=== PATIENT | male | born 1945 | race Caucasian/White ===

== ENCOUNTER → 2018-04-27 20:37 | Outpatient (REF) | payer MEDICARE, OTHER, SELFPAY ==
[2018-04-27 21:15] LABS: Add Manual Diff / Slide Review NO; Basophils Absolute Auto 0 /uL (0-100); Basophils Percent Auto 0.5 % (0-2); Eosinophils Absolute Auto 0 /uL (0-450); Eosinophils Percent Auto 0.5 % (2-4); Hematocrit 40.5 % (41-53); Hemoglobin 13.7 g/dL (13.5-17.5); Lymphocytes Absolute Auto 1600 /uL (1100-4500); Lymphocytes Percent Auto 35.8 % (25-40); Mean Corpuscular HGB Conc 33.9 % (30-36); Mean Corpuscular Hemoglobin 31.1 PG (26-34); Mean Corpuscular Volume 91.9 fL (80-100); Monocytes Absolute Auto 600 /uL (0-900); Neutrophils Absolute Auto 2200 /uL (1500-7000); Neutrophils Percent Auto 50.2 % (50-75); Platelet Count 128 X10^3/uL (150-400); Red Blood Cell Count 4.41 X10^6/uL (4.5-5.9); White Blood Cell Count 4.4 X10^3/uL (4.5-11.0)
[2018-04-27 21:37] LABS: Alanine Aminotransferase 36 IU/L (21-72); Albumin 4.1 g/dL (3.5-5.0); Albumin Globulin Ratio 2.1 (1.0-2.8); Alkaline Phosphatase 47 U/L (38-126); Aspartate Aminotransferase 28 IU/L (17-59); Bilirubin Total 0.9 mg/dL (0.2-1.3); Blood Urea Nitrogen 16 mg/dL (9-20); Calcium 9.4 mg/dL (8.4-10.2); Carbon Dioxide 31 mmol/L (22-32); Chloride 99 mmol/L (98-107); Estimated Glomerular Filt Rate > 60.0 mL/min (>60); Glucose 109 mg/dL (80-110); HEMOLYSIS < 15 (0-50); Potassium 4.1 mmol/L (3.4-5.1); Sodium 136 mmol/L (137-145); Total Protein 6.1 g/dL (6.3-8.2)
== END ==
LOC: LAB 20:37
PROVIDERS: Family Provider Family Medicine Geriatric Medicine; PCP Family Medicine Geriatric Medicine; Visit Provider Family Medicine Geriatric Medicine
DX: I10 Essential (primary) hypertension (principal); Z01.812 Encounter for preprocedural laboratory examination
CPT/HCPCS: 36415; 80053; 85025

== ENCOUNTER 2018-05-17 09:48 | Day surgery (SDC) | payer MEDICARE, OTHER, SELFPAY ==
[2018-05-09 07:54] VITALS: BMI 24.7
[2018-05-17] VITALS (8 sets, daily range): BP systolic 90–161; BP diastolic 38–78; PULSE 60–68; RESP 10–16; TEMP 36.1–36.7; O2SAT 93–100; BMI 23.3
[2018-05-17] MEDS: LACTATED RINGERS 1,000 ML 42 ML IV (11:28)
[2018-05-17] MEDS: CEFAZOLIN 2 GM/100 ML FROZ.PIGGY IV (14:16)
--- NOTE | 2018-05-17 14:39 | SUR.OPER ---
Supine on padded OR bed, head on pillow, right arm secured on padded arm boards at <90 degrees abduction, left arm drapped free on black arm tablelegs uncrossed, safety belt at thigh, tape over blanket over lower legs.
[2018-05-17] MEDS: BUPIVACAINE 0.5% W/ EPI (PF) VIAL 30 ML INJ (14:47)
--- NOTE | 2018-05-17 15:54 | PM.OP.1 ---
Operative Date/Time/Diagnoses Date of procedure: 05/17/18 Time of procedure: 14:30 Post-op diagnosis: same Procedure & Clinicians Procedure: Fasciotomy of the left small finger and palm. Fasciectomy of the cord formation in the palm of the hand involving the ring finger. Fasciectomy of the cord formation in the palm of the hand involving the middle finger. Same procedure as scheduled: Yes Indications: Dupuytren's contracture with a greater than 90 degree contracture to the PIP joint of the small finger as well as contractures involving the MCP joints of the ring and middle finger. Surgeon: Alvin Bazan Click Yes if Unassisted: Yes Anesthesia Type: General Operative Notes Findings: Significant contracture involving the PIP joint of the small finger. Much milder contracture involving the MCP joints of the ring and middle finger. Closure Type: primary Specimen(s): none sent Estimated Blood Loss (mL): 1 Blood products transfused: none Tourniquet time (min): 59 Procedure in detail: On date of service patient was met in the holding area where his operative site was signed and witnessed by the OR staff. surgeries once again discussed with the patient in remaining questions or concerns they had were answered fully. Patient was taken back to the operating theater placed on the operating table in a supine position. Great care was taken to ensure that all bony prominences were appropriately padded. well-padded tourniquet was placed up along the upper extremity. Time-out was performed verifying patient's name, procedure, and operative site. the left arm was prepped and draped in normal sterile fashion. Esmarch was used to exsanguinate the limb and the tourniquet was turned up to 250 mm of mercury. We 1st turned our attention to the cord formation in the palm of the middle finger causing an MCP joint contracture. Kathi incision was made along the cord. Fifteen blade was used to sharply dissect through skin and fascial tissue. This tissue was then sharply dissected off the Dupuytren's cord using the 15 blade. Neurovascular bundles were identified and once they were protected the cord was removed allowing us to fully extend the MCP joint. the wound was irrigated and then closed with nylon. Next we turned our attention to the cord formation involving the ring finger. Similar incision was made. Fifteen blade was used to incise the skin and fascial tissue. once again the neurovascular bundles were identified and protected and once the cord was fully visualized it was removed allowing us to fully extend the MCP joint of the ring finger. The wound was irrigated and then closed with nylon We finally we addressed the small finger. This was a much larger incision starting at the distal finger crease going past the proximal palmar crease. Kathi type incision was used again. Fifteen blade was used to incise through skin and fascial tissue. Patient had a center cord formation as well as a lateral cord formation involving the finger and the palm. The ulnar digital nerve was significantly involved. Radial digital nerve was also involved to a lesser degree. Great care was taken to dissect both digital nerves free from the diseased tissue. once this was done, the center cord formation was removed as well as the lateral cord formation. Removing both of these allowed us to get almost full extension of the PIP joint. We went from a greater than 90 degree contracture to about a 10 degree contracture. Wound was copiously irrigated and closed with nylon. Patient's hand was clean, dry, and dressed. He was placed into a splint and taken to the PACU in stable condition. Complications: none Condition: stable Disposition: PACU Plan for aftercare: Splint will be on for a few days. Patient will be then put into a nighttime brace which he will wear for 12 weeks. No limitations to range of motion once the splint is removed.
[2018-05-17] MEDS: HYDROCODONE/ACET 5/325 TABLET 1 TAB PO (16:20)
--- NOTE | 2018-05-17 17:14 | SUR.PHASEII ---
Assumed care from Adilia, friend brought in, d/c instructions discussed with both, both voiced an understanding. Dressing to l hand c/d/i. Iced and elevated. Assisted to dress by WOO [place] pt left when ready and left in stable condition.
== END 2018-05-17 17:00 | disposition home or self-care (01) ==
PROVIDERS: PCP Family Medicine Geriatric Medicine; Visit Provider Orthopaedic Surgery
PROC: (CPT 26045; principal; 2018-05-17 13:00)
DX: M72.0 Palmar fascial fibromatosis [Dupuytren] (principal); I10 Essential (primary) hypertension; J45.909 Unspecified asthma, uncomplicated; I48.91 Unspecified atrial fibrillation; Z87.891 Personal history of nicotine dependence
CPT/HCPCS: 26123; 26125; 26045; J0690; J2250; J2405; J2704; J3010

== ENCOUNTER → 2018-09-04 07:28 | Outpatient (CLI) | payer MEDICARE, OTHER, SELFPAY ==
--- NOTE | 2018-09-04 | PATH_ITS ---
Note [facility] Accession Number: [id number] TESTS RESULT FLAG UNITS REF RANGE LAB Clinician Provided Cytology Information No. of containers..01 ThinPrep Vial No. of containers..10 Previously Prepared Cytology Slide R GROIN LYMPH NODE DIAGNOSIS: 02 RIGHT GROIN LYMPH NODE NEGATIVE FOR MALIGNANT CELLS. 1B BENIGN APPEARING LYMPHOCYTES PRESENT. Pathologist ICD10: 02 R59.0 01 THE SINGLE ENLARGED, ABNORMAL APPEARING RIGHT GROIN LYMPH NODE IS AGAIN SEEN, MEASURING 1.4 X 0.9 X 1.8 CM. THE LYMPH NODE HAS ABNORMAL DIFFUSE HYPOECHOIC WITH LOSS OF THE NORMAL FATTY HILUM. THE RIGHT GROIN LYMPH NODES ARE NORMAL IN APPEARANCE WITH ABUNDANT FATTY HILUM. 02 Grant Polo MD, Pathologist NPI- [id number] Ayaz Barksdale, Vice President ([facility]) 01 30 CC, PINK, CLEAR RECEIVED: 5 ALCOHOL FIXED AND 5 QUICK STAINED SLIDES. /VDU FLAG LEGEND: L-Low Normal,H-High Normal,LL-Alert Low,HH-Alert High <-Panic Low,>-Panic High,A-Abnormal,AA-Critical Abnormal Performed at: 01 =Z [facility] [address], [place] [address] Willian Thomas MD, 02 LCLWA [facility] [place] [address] [place] [address] Nadine Marie MD, Performed at: 01 [facility] [address] [address] [address] [address], [place], [place] [id number] MD Willian Thomas MD Phone: [phone]
--- NOTE | 2018-09-04 | DI.US.S_ITS ---
PROCEDURE: US FINE NEEDLE ASPIRATION INDICATIONS: LOCALIZED ENLARGED RT LYMPH NODE TECHNIQUE: The indications, alternatives, benefits, risks, and complications of the procedure were explained to the patient. Written informed consent was obtained and placed in the chart. Real-time sonography was utilized to choose the site for percutaneous lymph node sampling. The skin was prepped and draped in the usual sterile fashion. 1% lidocaine was infiltrated down to the site of interest. A coaxial needle was then advanced into the site of interest under direct sonographic visualization. A biopsy apparatus was then utilized, and core biopsies were obtained. The needle was then withdrawn; a bandage was applied to the biopsy site. COMPARISON: None. FINDINGS: Biopsy site(s): Right inguinal lymph node Needle: Jobinasecond biopsy needle set. Number of passes: 8 Medications: 1% lidocaine for local anaesthesia. Complications: None. IMPRESSION: Successful ultrasound-guided right inguinal lymph node biopsy, with pathology results pending. Dictated by: Maru Abdullahi M.D. on 09/04/2018 at 13:37 Approved by: Maru Abdullahi M.D. on 09/04/2018 at 13:38
== END ==
PROVIDERS: PCP Family Medicine Geriatric Medicine; Visit Provider Family Medicine Geriatric Medicine
DX: R59.0 Localized enlarged lymph nodes (principal)
CPT/HCPCS: 10005

== ENCOUNTER → 2022-06-10 09:51 | Outpatient (CLI) | payer MEDICARE, OTHER, SELFPAY ==
--- NOTE | 2022-06-10 | DI.CT.S_ITS ---
PROCEDURE: CT LUMBAR SPINE WO CON INDICATIONS: Spinal stenosis, lumbar region with neurogenic claudication TECHNIQUE: Noncontrast 0.8 mm thick sections acquired from the T12 level to the sacrum. Sagittal and coronal reformats were constructed. For radiation dose reduction, the following was used: automated exposure control. COMPARISON: Outside Facility, RG, XR L-SPINE 4-6V, 04/22/2022, 10:52. Outside Facility, RG, MRI L-SPINE W/O CONTRAST, 01/21/2021, 10:38. FINDINGS: Image quality: Excellent. Bones: No acute vertebral body compression fractures. No suspicious lytic or blastic bony lesions. No pars defects. There is at least moderate dextroconvex scoliosis. T12-L1: Moderate loss of disc height is seen. Bridging endplate osteophytes are seen anteriorly as well as on the right and on the left. No significant neural foraminal or central canal narrowing can be seen. T12-L1: At least moderate loss of disc height is seen. Vacuum disc phenomenon is seen at this level. Bridging endplate osteophytes are seen, which are worst on the right and anteriorly. Moderate generalized disc bulge is seen. There is moderate right-sided and mild left-sided facet hypertrophy. There is moderate left-sided and moderate to severe right-sided neural foraminal narrowing. Mild to moderate central canal narrowing is seen. L1-L2: Severe loss of disc height is seen on the right side. Prominent bridging endplate osteophytes are seen on the right. At least moderate disc bulge is seen. There is severe right-sided and moderate left-sided neural foraminal narrowing. Moderate central canal narrowing is seen. L2-L3: At least moderate loss of disc height is seen on the right side. Bridging endplate osteophytes are seen, which are worst on right side. Post erected endplate osteophytes are seen, including within the right neural foramen, with associated moderate right-sided neural foraminal narrowing. At least moderate left-sided neural narrowing can be seen. There is prominent right-sided and mild left-sided facet hypertrophy. Moderate central canal narrowing is seen. L3-L4: There is at least moderate right-sided loss of disc height. Endplate irregularity and sclerosis can be seen. Vacuum disc phenomenon is seen at this level. Partially bridging endplate osteophytes are seen on the right side. Posteriorly projected endplate osteophytes are seen. There is moderate to severe bilateral neural foraminal narrowing seen. Severe central canal narrowing is seen at this level. L4-L5: Moderate to severe loss of disc height is seen. Vacuum disc phenomenon is seen at this level. Prominent bridging endplate osteophytes are seen on the left, as on series 8, image 25. At least moderate disc bulge is seen. There is moderate right-sided and moderate to prominent left-sided facet hypertrophy. There is moderate to severe left-sided and at least moderate right-sided neural foraminal narrowing. There is severe central canal narrowing. L5-S1: At least moderate loss of disc height is seen. Vacuum disc phenomenon is seen at this level. Partially bridging endplate osteophytes are seen on the left. Moderate disc bulge is seen, which is eccentric to the left. Posteriorly projected endplate osteophytes are seen. Moderate to severe bilateral neural foraminal narrowing is seen at this level. Mild central canal narrowing is seen. Note is made of fusion of the sacroiliac joints, left worse than right. Soft tissues: No retroperitoneal masses or hematomas. Visualized aorta is normal in caliber. Advanced aortic calcification can be seen. Pacer leads are partially seen. IMPRESSION: Multiple levels of prominent lumbar spine degenerative change can be seen. There is severe central canal narrowing seen at L3-L4 and L4-L5. Multiple levels of significant neural foraminal narrowing can be seen. There is at least moderate dextroconvex lumbar scoliosis. Additional findings: Pacer leads Advanced aortic calcification Dictated by: Shantanu Grover M.D. on 06/10/2022 at 11:04 Approved by: Shantanu Grover M.D. on 06/10/2022 at 11:12
== END ==
PROVIDERS: PCP Family Medicine; Referring Provider Orthopaedic Surgery Orthopaedic Surgery of the Spine; Visit Provider Orthopaedic Surgery Orthopaedic Surgery of the Spine
DX: M48.062 Spinal stenosis, lumbar region with neurogenic claudication (principal); M48.07 Spinal stenosis, lumbosacral region; M47.816 Spondylosis without myelopathy or radiculopathy, lumbar region; M41.9 Scoliosis, unspecified; I70.0 Atherosclerosis of aorta
CPT/HCPCS: 72131

== ENCOUNTER 2022-07-27 07:06 | Inpatient (IN) | payer MEDICARE, OTHER, SELFPAY ==
[2022-07-20 09:21] VITALS: BMI 24.0
[2022-07-27] VITALS (13 sets, daily range): BP systolic 87–159; BP diastolic 38–77; PULSE 63–92; RESP 11–18; TEMP 35.5–36.4; O2SAT 95–100; BMI 24.4
--- NOTE | 2022-07-27 | DI.RAD.S_ITS ---
PROCEDURE: XR LUMBAR SPINE 2-3V INDICATIONS: L3-4 L4-5 TLIF TECHNIQUE: Multiple intraoperative fluoroscopic images of the lumbar spine. COMPARISON: [facility], CR, L-SPINE 2-3 VIEWS, 10/30/2009, 12:10. FINDINGS: Multiple intraoperative fluoroscopic images of the lumbar spine demonstrate interval posterior spinal fusion and discectomy of L3 through L5. No gross hardware complication seen.. IMPRESSION: Intraoperative fluoroscopic support for posterior fusion of the lumbar spine. Please see separate procedure note for further details. Dictated by: Gregg Hanna M.D. on 07/27/2022 at 17:31 Approved by: Gregg Hanna M.D. on 07/27/2022 at 17:32
[2022-07-27] MEDS: LACTATED RINGERS 1,000 ML 42 ML IV ×2 (07:47→10:47)
--- NOTE | 2022-07-27 08:20 | PM.PREOP ---
Pre-operative Note COVID-19 Criteria for continued procedure: Expected advancement of disease process, Possibility delay results in more complex future surgery or treatment, Increased loss of function, Continuing or worsening of significant or severe pain, Deterioration of the patient's condition or overall health and Delay expected to result in less-positive ultimate med/surg outcome Interval Note History & Physical reviewed/Exam performed by Physician: Yes Changes to H&P: No
[2022-07-27] MEDS: CEFAZOLIN 2 GM/100 ML PREMIX 100 ML IV ×3 (09:05→22:51)
--- NOTE | 2022-07-27 09:29 | SUR.OPER ---
Prone on spine table, head in foam head support, padded chest and pelvic supports, gel pad at knees, lower legs supported by pillows; nipples, genitalia and toes free of pressure, arms secured on foam padded arm boards at <90 degrees abduction. Tape over blanket at thigh secured to table.
[2022-07-27] MEDS: BUPIVACAINE LIPOSOME 266 MG/20 ML VIAL INJ (10:07)
[2022-07-27] MEDS: BUPIVACAINE 0.25% (PF) 60 ML, EPINEPHrine 0.15 MG INJ (10:08)
[2022-07-27] MEDS: CEFAZOLIN VIAL 2 GM in SODIUM CHLORIDE 0.9% 100 ML IV (13:00)
--- NOTE | 2022-07-27 13:26 | PM.OP.1 ---
Operative Date/Time/Diagnoses Date of procedure: 07/27/22 Time of procedure: 08:40 Pre-op diagnosis: 1. Lumbar scoliosis 2. Lumbar spinal stenosis with neurogenic claudication Post-op diagnosis: same Procedure & Clinicians Procedure: 1. L3-4, L4-5 Postero-lateral and posterior interbody fusion 2. L3-4, L4-5 interbody cage placement. 3. L3-4, L4-5 decompressive laminectomy with bilateral facetecomies 4. L3-4, L4-5 Posterior segmental instrumentation 5. [place] of bone marrow from iliac crest 6. Utilization of microsurgical technique and operating microscope 7. Utilization of robotic assisted navigation Same procedure as scheduled: Yes Indications: Patient has been having chronic back pain and worsening lumbar radiculopathy and symptoms of neurogenic claudication. Patient failed multiple conservative management with worsening pain weakness and numbness in his lower extremity. Patient has been having difficulty performing activity of daily living. After discussing risks benefits of treatment options, patient elected proceed with surgery. Surgeon: Caron Adkins Senior Clinical Sas Programmer: Yuliet Hurley Click Yes if Unassisted: No Anesthesia Type: General Operative Notes Closure Type: primary Specimen(s): none sent Prosthetic devices, grafts, tissues, transplants, or devices: Globus CREO MIS screws, Rise cages Applied: catheter Estimated Blood Loss (mL): 250 Blood products transfused: none Procedure in detail: Patient was seen in the preoperative area. Risks and benefits of the surgery was discussed with the patient. Informed consent was obtained from the patient and placed in the chart. Surgical site was marked. Patient was taken to the operative room. General anesthesia was administered. Prophylactic antibiotic was given to the patient less than 30 min before the incision was made. Patient was placed into a prone position on the Roosevelt table. Patient's back was then prepped and draped in the sterile fashion. Time-out was performed at this time. After patient was prepped and draped, patient's PSIS was palpated and marked bilaterally. Small 1 cm incision was made over the PSIS for placement of the reference probes. Two trocar was placed into the PSIS 1 on each side. The reference probe was attached to the trocar of the reference apparatus. At this time the C-arm imaging was used to confirm AP and lateral of L3, L4-L5 vertebrae and merged the C-arm imaging using the Acopio robotic navigation system with the CT of the lumbar spine. After successful merging was completed and confirmed, skin marker was used to moose out the skin incision using the Acopio robotic arm. Bilateral incision was made at this time. Pre templated trajectory was used and guided using the Acopio robotic navigation system for bilateral L3 L4, L5 pedicle screw placement. This was done by using the robotic arm to guide the high-speed bur to make a cortical entry point. Next a drill was placed also using the robotic arm and guided using the navigation system drilling partially through bilateral L3, L4, L5 pedicles. Next L3, L4, L5 pedicle screws it was pre templated and measured was placed onto the power bulk delivery driver and inserted into the pedicles bilaterally. After all 6 screws were placed C-arm imaging was taken of both AP and lateral to confirm the placement. Excellent placement of the screws were confirmed and a matched precisely with the pre planned screw placement using the navigation system. MARs retractor was inserted using Data Stream CBOTivation guidence. Globus MARS retractors was placed inside the incision and docked onto the L3, L4 lamina. Using microsurgical technique and operating microscope, a L3, L4 laminectomy and L3-4, L4-5 facetectomy was performed using a Kerrison rongeur. The laminectomy and facetectomy was performed in order to decompress patient's cauda equina as well as the nerve roots exiting at the L3-4, L4-5 level. Patient was found have severe central stenosis, severe lateral recess and neural foramen stenosis which was fully decompressed after the laminectomy and facetectomies. More than 75% of the facets were removed during the process of decompression rendering L3-4, L4-5 level grossly unstable and required a fusion procedure at the same time. The disc space at L3-4, L4-5 was identified, and a total diskectomy was performed at L3-4, L4-5 level. The endplates were decorticated using a rasp and shaver. The total diskectomy and decortication was performed at L3-4, L4-5 level in order to to accomplish a L3-4, L4-5 fusion. The local bone from the laminectomy and facetectomy was saved for local bone grafting. After the total diskectomy and decortication was completed, Trifecta bone graft material was combined with local bone that was harvested earlier. At this time, a separate skin is incision was made over the iliac crest. A Jamshidi needle was inserted into the iliac crest through a separate skin incision. 5 cc of bone marrow aspiration was obtained through the separate skin incision using a Jamshidi needle from the iliac crest. The bone marrow aspiration was combined with local bone and the Trifecta bone grafting material. The bone grafting material was placed into the L3-4, L4-5 interbody space along with expandable cages. One cage each was inserted into the L3-4 L4-5 interbody space along with bone graft material. The cage was expanded to its maximum height using the torque limiting screwdriver. The disc preparation as well as the cage insertion were also performed under navigation guidance. After the cage was placed, AP and lateral C-arm imaging was taken to confirm placement of the cage and excellent position was confirmed. Globus MARS retractor was inserted and docked onto the L3-4, L4-5 posterolateral gutter on the right side. Using the power drill, posterior-lateral decortication was performed at L3-4, L4-5 level until bleeding cortical bone was identified. The remaining bone grafting material was placed into the L3-4, L4-5 posterior lateral gutter he order to accomplish posterolateral fusion at the L3-4, L4-5 level. At this time the tulips were attached to the L3, L4-L5 pedicle screw shanks. After measuring the length of the rods, they were inserted into the tulips of the pedicle screws and locked in place using locking caps and torque limiting screwdriver bilaterally. Total 6 caps and 2 titanium rods was used in order to complete the posterior instrumentation construct. After all the hardware was placed, and confirmed with AP and lateral C-arm imaging, the wound was then irrigated with sterile normal saline and packed with Ray-Christophe gauze for 3 min to accomplish hemostasis. After the gauze was removed the deep fascia was closed with #1 Vicryl suture. The subcutaneous layer was closed with 2-0 Vicryl. The skin was closed with skin jayce. Patient tolerated the procedure well. There were no complications. Neuro monitoring system was used to monitor patient's neurologic status throughout entire procedure. There was no disturbance of the neural monitoring signals throughout the case. The Operation could not have been safely performed without compromising the technical result or length of the procedure, without the assistance of a skilled surgical instrument repair specialist. The surgical instrument repair specialist was medically necessary for proper positioning, retraction and manipulation of instruments, proper exposure, surgical preparation, and manipulation of tissue. Complications: none Post-operative Condition: stable Disposition: PACU Plan for aftercare: Admit to inpatient hospital
[2022-07-27] MEDS: hydrOXYzine pamoate 25 MG CAPSULE 50 MG PO (13:42)
[2022-07-27] MEDS: OXYCODONE IR 5 MG TABLET PO (13:42)
[2022-07-27] MEDS: HYDROMORPHONE 0.5 MG INJ IV ×2 (14:50→19:06)
[2022-07-27] MEDS: LACTATED RINGERS 1,000 ML 125 ML IV ×2 (14:54→21:46)
[2022-07-27] MEDS: CARBIDOPA-LEVODOPA 25/100 TABLET 1 EACH PO ×2 (14:57→21:54)
--- NOTE | 2022-07-27 16:12 | PT-IP ANOTE ---
Patient still drowsy and in a lot of pain, not appropriate to mobilize yet with PT. Obtained history and home setup from patient and SO Christophe. Will plan to eval tomorrow AM. Christophe would like to be present during PM session and left phone number on board in room to coordinate time.
[2022-07-27] MEDS: OXYCODONE IR 10 MG TABLET PO ×2 (16:21→21:54)
--- NOTE | 2022-07-27 16:48 | PC.NURSE ---
Patient arrived from PACU at 1410. He is alert, OX3. He reports pain 100,000 out of 10. Incision to back, c/d/i.SBP initially low 80's-90's, improved to 100's. DBP 40's-50's. Patient continues to c/o severe pain but reports it is improving to 850,000 out of 10 He is placed on 2 LNC for support as 02 sats in upper 80's. He is educated and encouraged to use IS, and is able to reach 2,5000. Ice packs placed to back.Gatica catheter in place draining clear, yellow, adequate urine. He is able to turn from side to side in the bed with assistance. Educated on spinal precautions. at bedside very supportive.
[2022-07-27] MEDS: hydrOXYzine pamoate 25 MG CAPSULE PO (21:54)
[2022-07-27] MEDS: ATORVASTATIN 20 MG TABLET 40 MG PO (21:54)
[2022-07-27] MEDS: SENNOSIDES 8.6 MG TABLET 17.2 MG PO (21:54)
[2022-07-27] MEDS: DOCUSATE 100 MG CAPSULE PO (21:54)
[2022-07-27] MEDS: ACETAMINOPHEN 325 MG TABLET 650 MG PO (21:55)
[2022-07-28] VITALS (8 sets, daily range): BP systolic 100–120; BP diastolic 39–66; PULSE 66–89; RESP 15–18; TEMP 35.9–38.2; O2SAT 92–99
[2022-07-28] MEDS: HYDROMORPHONE 0.5 MG INJ IV (00:36)
[2022-07-28] MEDS: hydrOXYzine pamoate 25 MG CAPSULE PO (03:00)
[2022-07-28] MEDS: OXYCODONE IR 10 MG TABLET PO ×4 (03:02→20:01)
[2022-07-28] MEDS: LEVOTHYROXINE 88 MCG TABLET PO (06:13)
[2022-07-28] MEDS: ACETAMINOPHEN 325 MG TABLET 650 MG PO ×2 (06:13→20:03)
[2022-07-28] MEDS: LACTATED RINGERS 1,000 ML 125 ML IV ×2 (06:15→22:59)
[2022-07-28 06:17] LABS: Hematocrit 27.6 % (41-53); Hemoglobin 9.6 g/dL (13.5-17.5)
--- NOTE | 2022-07-28 07:26 | PM.PNPO.1 ---
Subjective Subjective Date Patient Seen: 07/28/22 Time Patient Seen: 07:27 Interval history: Pain moderate to severe. Denies fever or chills. No nausea or vomiting Exam Vital Signs (past 8 hours): - 07/28/22 01:50 07/28/22 05:43 Temperature 97.3 F L 98.1 F Pulse Rate 82 84 Respiratory Rate 18 16 Blood Pressure 106/48 L 111/49 L Pulse Oximetry 92 93 Oxygen Flow Rate 0 Oxygen Delivery Method Room Air Oxygen Flow Rate 0 Narrative Exam Narrative: 76-year-old male resting comfortably in bed in no apparent distress. Motor functions intact bilateral lower extremities. Sensation grossly intact to light touch bilateral lower extremities. Const General: cooperative and comfortable Nutritional Appearance: average body habitus Orientation: alert Resp Effort & Inspection: normal respiratory effort and able to speak in complete sentences Objective Labs 07/28/22 05:39 Labs: Laboratory Results - last 24 hr 07/28/22 05:39 Hgb 9.6 L Hct 27.6 L PFSH Medical History Acid reflux Afib Ascending aorta dilation Asthma Bradycardia (~2020) CAD (coronary artery disease) Diastolic murmur Easy bruisability HLD (hyperlipidemia) HTN (hypertension) Hypothyroid Lumbar spondylosis Pacemaker (~2017) Parkinson's disease Retinopathy Scoliosis Spinal stenosis, lumbar region with neurogenic claudication SSS (sick sinus syndrome) Tachy-blaine syndrome Surgical History H/O: vasectomy Hx of appendectomy Hx of hemorrhoidectomy Hx of laminectomy (~2002) Hx of tonsillectomy S/P CABG x 4 (~03/2012) Social History household members: significant other Smoking Status: Former smoker alcohol intake: current Assessment & Plan Post-op Postoperative Procedures: Procedures Operation Date: 07/27/22 08:45 Actual Procedure Side Surgeon p L3-4, L4-5 TLIF w. posterior instrumentation-Robot Caron Adkins MD Postoperative day: 1 Postoperative status: marginal pain control Postoperative status narrative: Patient progressing as expected Postoperative plan narrative: Discontinue Gatica catheter Mobilize with physical therapy, limit bending, twisting, lifting Multimodal pain management Restart Eliquis on postop day 2, July 29, 2022 Patient is not to receive any steroids due to eye condition Discharge likely today or tomorrow
[2022-07-28] MEDS: TAMSULOSIN 0.4 MG CAPSULE PO (09:16)
[2022-07-28] MEDS: CARBIDOPA-LEVODOPA 25/100 TABLET 1 EACH PO ×3 (09:16→21:03)
[2022-07-28] MEDS: DOCUSATE 100 MG CAPSULE PO ×2 (09:18→21:03)
--- NOTE | 2022-07-28 10:10 | PT.IIE ---
Current Diagnoses Other secondary scoliosis, thoracolumbar region (07/27/22) Spinal stenosis, lumbar region with neurogenic claudication (07/27/22) Surgery Performed Operation Date: 07/27/22 08:45 Actual Procedures p L3-4, L4-5 TLIF w. posterior instrumentation-Robot - Caron Adkins MD Surgical History (Last Reviewed 07/28/22 @ 07:27 by Chele Nieves PA-C) H/O: vasectomy Hx of appendectomy Hx of hemorrhoidectomy Hx of laminectomy (~2002) Hx of tonsillectomy S/P CABG x 4 (~03/2012) Medical History (Last Reviewed 07/28/22 @ 07:27 by Chele Nieves PA-C) Acid reflux Afib Ascending aorta dilation Asthma Bradycardia (~2020) CAD (coronary artery disease) Diastolic murmur Easy bruisability HLD (hyperlipidemia) HTN (hypertension) Hypothyroid Lumbar spondylosis Pacemaker (~2017) Parkinson's disease Retinopathy Scoliosis Spinal stenosis, lumbar region with neurogenic claudication SSS (sick sinus syndrome) Tachy-blaine syndrome Physical Therapy Inpatient Evaluation/Re-Eval M1 PT/OT-IP Prior Functional Status Start: 07/27/22 16:09 Freq: NEEDED Status: Active Protocol: Document 07/28/22 10:10 AB (Rec: 07/28/22 13:29 AB [id number]) Medical Review Prior Functional Status Medical History Reviewed Yes Communication able to make needs known but pt is initially lethargic and needs cues to keep his eyes open Mobility and Gait pt's significant other in room and provided PLOF and home set up info pt was modified independent with all mobilities and ambulation without AD Activities of Daily Living and IADL's per OT note: Indep Prior Functional Level (Other details) per OT note: Drives during the day only due to vision impairment Social History Household Members significant other Living Arrangements House Number of Floors (Floors) One Floor Number of Stairs To Enter/Railing? no steps to enter Home Environment Standard Height Toilet,Walk in Shower Home Equipment Front Wheel Walker,Straight Cane,Shower Seat with Backrest ,Hand Held Shower,Grab Bars In Shower M2 PT-IP Current Condition Start: 07/27/22 16:09 Freq: NEEDED Status: Active Protocol: Document 07/28/22 10:10 AB (Rec: 07/28/22 13:29 AB [id number]) Physical Therapy Current Condition Current Condition Evaluation Date 07/28/22 Treatment Diagnosis s/p L3-4, L4-5 TLIF; difficulty in walking Onset Date 07/27/22 M3 PT-IP Subjective Start: 07/27/22 16:09 Freq: NEEDED Status: Active Protocol: Document 07/28/22 10:10 AB (Rec: 07/28/22 13:29 AB [email or web address]) Subjective Physical Therapy Visit Type Type Initial Evaluation Visit Start Time 10:10 Visit Stop Time 10:54 Total Visit Minutes 44 Number of ACOUSTICAL CARPENTER Visits 0 Physical Therapy Visit Comments Patient Comments agreeable to do PT Therapy Pain Assessment Pain When Pain Assessed During Mobility Location back Intensity 6 Scale Used Numeric (0 - 10) Pain Management Techniques Distraction,Modification of Treatment,Re-positioning, Timing of Activity with Medications M4 PT-IP Mobility and Gait Start: 07/27/22 16:09 Freq: NEEDED Status: Active Protocol: Document 07/28/22 10:10 AB (Rec: 07/28/22 13:29 AB [id number]) PT-Bed Mobility Assessment Rolling Type of Rolling Log Rolling Level of Assist Maximal Assistance Supine to Sit Supine to Sit Moderate Assistance,1 Person Assistance PT-Transfer Assessment Sit to and From Stand Sit to and from Stand Moderate Assistance,Maximum Assistance,1 Person Assistance ,Use of Upper Extremities Equipment Transfer Assistive Device Gait Belt,Front Wheeled Walker Orthotic/Prosthetic Devices or Brace: No Transfers Transfer Destination Chair Transfer Technique Stand Step Pivot Transfer Ability Level of Assist Moderate Assistance,1 Person Assistance,Use of Upper Extremities Comments Mobility Comments pt in bed and lethargic. Pt's SO in room with pt. pt required repeated cues to stay awake and eventually was able to stay awake once sitting up . BP in supine: 93/43. educated on back precautions and log roll bed mobility. completed log roll bed mobility requiring max A for rolling to the R and mod A to sit up. BP in sittin/43. c/o slight dizziness. pt able to sit for a few more mintues and BP checked again: 105/47. completed sit to stand mod A and max cues and was able to take a 3 steps using FWW to transfer to the chair. presents with LLE dragging gait requiring cues to elevate and needed assist with weight shifting to be able to move LLE. max A for controlled sitting. pt agreed to sit on the chair. BP checked after transfer sitting on the chair. 84/36. positioned pt on the chair with LE elevated. informed nurse regarding low BP. call light and table placed within reach. BP checked again: 105/43. SO agreed to do caregiver training in the afternoon if and when pt is appropriate. Gait Assessment Comments Gait Comments only able to take a few steps using FWW mod A during transfers PT-Balance Assessment Sitting Balance and Reactions Static Sitting Balance Ability Good Dynamic Sitting Balance Ability Good Standing Balance and Reactions Static Standing Balance Ability Fair Dynamic Standing Balance Ability Poor Device Used FWW M5 PT-IP Objective Assessments Start: 07/27/22 16:09 Freq: NEEDED Status: Active Protocol: Document 07/28/22 10:10 AB (Rec: 07/28/22 13:29 AB [id number]) Orientation Orientation/Cognition Level of Alertness Lethargic Orientation Name,Place,Situation Safety Awareness Decreased Safety Awareness Gross Range of Motion Lower Extremity ROM Assessment Within Functional Limits Strength Lower Extremity Strength Assessment Left Impaired Hip 3+/5 Knee 4-/5 Coordination Assessment Gross Coordination Gross Coordination WNL Sensation Assessment Sensation Gross Sensation WNL Muscle Tone Muscle Tone WNL Yes M6 PT-IP Treatment Start: 07/27/22 16:09 Freq: NEEDED Status: Active Protocol: Document 07/28/22 10:10 AB (Rec: 07/28/22 13:29 AB [email or web address]) Physical Therapy Treatment Education Education Provided Precautions,Weight Bearing Status,Post-Op Packet,Safety M7 PT-IP Assessment and Plan Start: 07/27/22 16:09 Freq: NEEDED Status: Active Protocol: Document 07/28/22 10:10 AB (Rec: 07/28/22 13:29 AB [email or web address]) PT Summary Assessment and Plan Potential Rehabilitation Potential Fair Status of Condition at Evaluation Evolving Summary Impairments Pain,ROM,Strength,Balance, Coordination,Sensation,Tone, Cognition,Bed Mobility, Transfers,Gait,Activity Tolerance Assessment Summary Pt s/p L3-4, L4-5 TLIF POD1. Pt also has dx of parkinson's disease contributing to pt's current medical status. pt requiring max A for bed mobility and mod A for transfers using FWW and unable to ambulate at this time but able to take steps for transfers. pt with decrease BP after standing/ transfer affecting mobility tolerance and assistance. will conduct caregiver training when appropriate and will continue to assess progress. pt may benefit from HHPT. Goals Bed Mobility Goal Standby Assistance Transfer Goal Standby Assistance,Front Wheeled Walker Gait Goal Standby Assistance,Front Wheel Walker Gait Distance 150 Days to Meet Goals 5 Frequency of Treatment Frequency Of Treatment Twice a Day Treatment Plan Physical Therapy Treatment Plan Bed Mobility Training,Transfer Training,Gait Training, Therapeutic Exercise,Balance Retraining,Post Op Education, Discharge Planning,Hot or Cold Pack,Neuromuscular Re-ed, Coordination Retraining,Manual Therapy Precautions Lumbar Precautions Log Roll,No Twisting,Limit Bending,Lifting Restriction of 10 lbs,Gait Belt above Incisional Area Recommendations To Nursing Amount of Assist Needed 2 Person Assist Discharge Recommendations PT Discharge Recommendations Home with 29/08 Assist Available,Home Health,SNF Rehab,Home vs SNF Transportation Needs at Discharge Private Vehicle,Wheelchair/ Cabulance
--- NOTE | 2022-07-28 11:14 | CM.DANOTE ---
Addendum entered by Prisca Angelo R.N. 07/28/22 15:49: Met again with patient and partner, Christophe. Confirmed that they want home, not rehab, but willing to have [facility], only for P.T, and O.T. Stated that that the clinic provider can do house calls if needed. Left Mario at [facility] a message, and faxed over the referral, included orders, face to face, face sheet, H&P, and P.T. notes. At this time, plan is [facility] upon discharge. They will just need DC Summary. Original Note: DCP: Case received, EMR reviewed and met with patient. Christophe, patient's partner, was at bedside. Introduced self and role. Was able to obtain information regarding patient's baseline activity status prior to hospitalization. DCP assessment completed with information currently available. Patient is a 76 year old male who admitted yesterday morning to the care of the orthopedic team. PCP: Dr. Renee. Payer: confirmed: Medicare/[employer]. Patient came to the hospital for an orthopedic procedure. Patient had postero-lateral and posterior interbody fusion. Patient has history of lumbar scolioisis. Met with patient and his partner, Christophe Finley, who was at bedside. Patient was sleepy, not engaging in conversation. Confirmed that he resides on [address] with partner, Christophe. Christophe indicated that she is a certified associate director career services. She indicated that patient is independent at his baseline. She hopes that he can go home,, versus him going to skilled. Discussed [facility] health services[facility] since they are the only agency that goes to the [facility]. She hopes that he can do outpatient P.T. P: DCP to follow closely. Ileana, Ot, indicated that patient is sedated, unable to work with him as of yet. Will have to see how he does with P.T. Plan is home versus skilled. Prisca Angelo RN/Casting Machine Operator Automatic Discharge Planning/Care Management Advanced directive, confirm from FAMILY Start: 07/27/22 16:30 Freq: Q24H Status: Active Protocol: Document 07/27/22 19:00 CT (Rec: 07/28/22 00:22 CT [id number]) Advance Directive, confirm on record Time 19:40 Person contacted pt Copy received No CM Discharge Assessment Start: 07/28/22 11:10 Freq: Status: Active Protocol: Document 07/28/22 11:10 (Rec: 07/28/22 11:14 [id number]) Discharge Planning Assessment Assigned Palm And Back Forger Prisca Angelo RN/Casting Machine Operator Automatic Advance Directives? Yes Advance Directives on File No History Provided By Patient,Significant Other, Medical Record Prior Living Arrangements House Household Members significant other Type of transporation used prior to Drives own vehicle admit Independent with ADL's Yes Is patient alert and oriented? Yes Caregiver for Another No Barriers to Discharge No Comment Patient's partner is a CORRIDOR REDEVELOPMENT MANAGER. Discharge Plan Home Transportation Arrangement Partner Referrals Initiated Other Additional Comment Will have to see how patient does with P.T. Whiteboard Updated in Patient Room with Yes name and ext. # of Palm And Back Forger Review Status In Process Next Review Type Continued Stay Review Pre-Anesthesia Assessment Start: 07/20/22 09:21 Freq: Status: Active Protocol: Document 07/20/22 09:21 CAB (Rec: 07/20/22 10:47 CAB [id number]) Pre-Anesthesia Assessment Preferred Name Robert Patient Information Reviewed Via Phone Assessment Assessment Completed With Patient Diagnostic Results BMP/CMP,CBC,EKG Comment Outside labs/EKG scanned Primary Care Provider Garland Renee Seen Specialist in Last 12 Months Yes Specialist Seen Truck Service Technician,Orthopedist Primary Language Sudanese Astrophysics Professor Required No Height 5 ft 11.5 in Weight 175 lb Body Mass Index (BMI) 24.0 Hearing Ability Normal Visual Assist Glasses Dentition Type Teeth, Natural Present Barriers to Learning Visual Comment Retinopathy Hx Anesthesia Reactions No Hx Family Anesthesia Reaction No Hx Malignant Hyperthermia No Hx Blood Transfusions Yes: CABG Hx Blood Transfusion Reaction No Anesthesia Review Requested No Caramel Candy Maker No alcohol intake current alcohol intake frequency a few times a week Smoking Status Former smoker Tobacco type cigarettes how long ago did patient quit smoking In the 70's Substance Use Type does not use Pain Present Pain Reported Musculoskeletal Symptoms Abnormal Gait,Back Pain, Difficulty Walking,Muscle Weakness,Numbness,Radiating Pain into Limb,Tingling History of Falling (Recent or History of No ) Patient is completely paralyzed or No completely immobile Mental Status Oriented to own ability Is patient on oxygen? No Does patient have TRIANA/SOB Yes Hx Sleep Apnea No CPAP/BIPAP use not prescribed Currently Taking a Beta Nito No Hx Chest Pain No Hx SOB Yes Hx Syncope or Dizziness No Anti-Coagulant Therapy Yes: Eliquis-Pt will check with PCP on when to hold Has a Truck Service Technician Yes: Last visit 09/30/[address]. Barragan @ [facility] Cardiac Testing Nuc stress and Echo w/ [facility] 10/2021 Hx Pacemaker/ICD Yes Pacemaker Rep Required? No: Pacer form scanned and in surgery folder for dos Comment Cardiac records scanned Diet Type At Home Regular,Gluten Free Dysphagia No Gastrointestinal Symptoms Constipation,Reflux Bladder Pattern Frequency,Nocturia Urinary Catheter Present No Hx Urinary Self Catheterization No Diabetes No HgbA1C 6.0 Date 06/13/22 Hx Drug Resistant Organism No Presence of External or Internal Medical Yes: Pacemaker, sternal wires( Devices CABG) Received a COVID vaccine? Yes Received all doses? Yes Marital Status / Lives With significant other Current Living Arrangements House Number of Floors (Floors) One Floor Support System Significant Other Does the Patient Have Assistance After Yes Surgery Patient Discharge Plan Description Return Home Comment Pt not advised on length of stay per surgeon Additional comment Lives on [facility] Feels Safe in Current Environment Yes Been Physically Hurt or Threatened By a No Person in Current Environment Do you have thoughts of harming yourself None or others? Are you currently considering suicide? No Do you have a plan to hurt yourself or No Plan others? Do You Have Any Spiritual Beliefs That No May Affect Your HC Choices? Do You Have Any Cultural Practices That No May Affect Your HC Choices? Comment Buddhism Who Can We Speak to About Patient's Care Family, friends Identifying Code for Release of Patient Declines to issue Information Health Care Proxy/Next of Kin Christophe Finley (S.O.) Health Care Proxy Emergency Contact Name Christophe Finley (S.O.) Emergency Contact Advance Directives? Yes Advance Directives on File No Requested Patient Bring Advanced Yes Directives DOS Power of Blind Teacher Yes Power of Blind Teacher Name Chandra (brother) Power of Blind Teacher or [phone] PAC Instructions Medications to take/avoid, Nasal antibiotic,No ETOH/ petroleum product on skin DOS, NPO,Pre-surgical wash,Sensory aids,Sturdy shoes/comfortable clothes,Do not bring valuables and remove jewelry
--- NOTE | 2022-07-28 11:15 | OT.IP.EVAL ---
Current Diagnoses Other secondary scoliosis, thoracolumbar region (07/27/22) Spinal stenosis, lumbar region with neurogenic claudication (07/27/22) Surgery Performed Operation Date: 07/27/22 08:45 Actual Procedures p L3-4, L4-5 TLIF w. posterior instrumentation-Robot - Caron Adkins MD Past Medical History (Last Reviewed 07/28/22 @ 07:27 by Chele Nieves PA-C) Acid reflux Afib Ascending aorta dilation Asthma Bradycardia (~2020) CAD (coronary artery disease) Diastolic murmur Easy bruisability HLD (hyperlipidemia) HTN (hypertension) Hypothyroid Lumbar spondylosis Pacemaker (~2017) Parkinson's disease Retinopathy Scoliosis Spinal stenosis, lumbar region with neurogenic claudication SSS (sick sinus syndrome) Tachy-blaine syndrome Surgical History (Last Reviewed 07/28/22 @ 07:27 by Chele Nieves PA-C) H/O: vasectomy Hx of appendectomy Hx of hemorrhoidectomy Hx of laminectomy (~2002) Hx of tonsillectomy S/P CABG x 4 (~03/2012) Occupational Therapy Inpatient Evaluation/Re-Eval M1 PT/OT-IP Prior Functional Status Start: 07/28/22 14:25 Freq: NEEDED Status: Active Protocol: Document 07/28/22 11:15 [facility] (Rec: 07/28/22 14:40 [facility] [id number]) Medical Review Prior Functional Status Medical History Reviewed Yes Communication able to make needs known but pt is initially lethargic and needs cues to keep his eyes open Mobility and Gait pt's significant other in room and provided PLOF and home set up info pt was modified independent with all mobilities and ambulation without AD Activities of Daily Living and IADL's Pt SO, pt able to do but had pain. Prior Functional Level (Other details) Drives during the day only due to vision impairment Social History Household Members significant other Living Arrangements House Number of Floors (Floors) One Floor Number of Stairs To Enter/Railing? no steps to enter Home Environment Standard Height Toilet,Walk in Shower Home Equipment Front Wheel Walker,Straight Cane,Shower Seat with Backrest ,Hand Held Shower,Mottler Operator,Grab Bars In Shower Additional Social History Comment SO is a certified healthcare aide and will be home to assist as needed. M2 OT-IP Current Condition Start: 07/28/22 14:25 Freq: Status: Active Protocol: Document 07/28/22 11:15 [facility] (Rec: 07/28/22 14:40 [facility] [id number]) Occupational Therapy Current Condition Current Condition Evaluation Date 07/28/22 Treatment Diagnosis S/p L3-4, L4-5 TLIF Diagnosis Onset Date 07/27/22 Post Operative Precautions Lumbar Precautions Log Roll,No Twisting,Limit Bending,Lifting Restriction of 10 lbs,Gait Belt above Incisional Area M3 OT- IP Subjective and Pain Start: 07/28/22 14:25 Freq: Status: Active Protocol: Document 07/28/22 11:15 [facility] (Rec: 07/28/22 14:40 [facility] [id number]) OT- Subjective Occupational Therapy Visit Type Type Initial Evaluation Visit Start Time 11:08 Visit Stop Time 13:23 Total Visit Minutes 26 Occupational Therapy Visit Comments Patient Comments Pt seen pt twice as first attempt pt very sleepy and hard to arouse. Pt's SO in the room . Patient/Caregiver Goals To go home. OT Pain Assessment Pain When Pain Assessed At Rest Pain Present Pain Present Denied Pain M4 OT- IP ADL's Start: 07/28/22 14:25 Freq: Status: Active Protocol: Document 07/28/22 11:15 [facility] (Rec: 07/28/22 14:40 [facility] [id number]) OT TDT-Cofd-Rodlyxc Comments OT Self-Feeding Comments Noted food in his mouth after lunch time and educated SO to try to make sure pt awake while eating, eat upright , and to be sure his mouth is clear. OT ADL-Grooming Comments OT Grooming Comments Not performed, pt just wanting to get back to bed. OT ADL-Oral Care Comments Oral Care Comments Not performed. OT ADL-Dressing General Eval Lower Body Dressing Ability Maximum Assistance Comments OT Dressing Comments Able to talk to his SO of LB dressing equipment needs. OT ADL-Toileting General Evaluation Toileting Ability Total Assistance Comments OT Toileting Comments Gatica in place. OT ADL-Bathing Comments OT Bathing Comments Not performed. M5 OT- IP IADL's Start: 07/28/22 14:25 Freq: Status: Active Protocol: Document 07/28/22 11:15 [facility] (Rec: 07/28/22 14:40 [facility] [id number]) OT-Instrumental Activities of Daily Living Deficits IADL Deficits Identified Deficits Home Safety Awareness Home Safety Comments Pt too groggy and sleepy at this time, unable to states his back precautions. M6 OT- IP Functional Cognition Start: 07/28/22 14:25 Freq: Status: Active Protocol: Document 07/28/22 11:15 [facility] (Rec: 07/28/22 14:40 [facility] [id number]) Cognitive Factors Limiting Selfcare Function Cognitive Ability Level of Alertness Drowsy Patient Orientation Name Cognitive Comments Cognitive Assessment Comments Pt very drowsy and not able to state his precautions and needing step by step commands to follow as falling asleep. OT- Vision and Hearing OT- Vision Assessment Visual Acuity Glasses All The Time M7 OT- IP Mobility and Balance Start: 07/28/22 14:25 Freq: Status: Active Protocol: Document 07/28/22 11:15 [facility] (Rec: 07/28/22 14:40 [facility] [id number]) OT- Bed Mobility Assessment Supine to Sit Supine to Sit Assist Moderate Assistance OT-Transfer Assessment Sit to and From Stand Sit to and from Stand Maximum Assistance Transfers Transfer Ability Moderate Assistance,1 Person Assistance,2 Person Assistance Technique Transfer Destination Bed,Chair Devices Transfer Assistive Devices Gait Belt,Front Wheeled Walker Comments Mobility Comments MAXA X1 to stand from the recliner to FWW and needing 1- 2 person assist to transfer to the bed. Assist to get his legs back into bed at this time. OT- Balance Assessment Sitting Balance and Reactions Static Sitting Balance Ability Good Standing Balance and Reactions Static Standing Balance Ability Poor Dynamic Standing Balance Ability Poor M8 OT- IP Objective Assessments Start: 07/28/22 14:25 Freq: Status: Active Protocol: Document 07/28/22 11:15 [facility] (Rec: 07/28/22 14:40 [facility] [id number]) OT-Muscle Tone Assessment Muscle Tone WNL Yes M9 OT- IP Assessment and Plan Start: 07/28/22 14:25 Freq: Status: Active Protocol: Document 07/28/22 11:15 [facility] (Rec: 07/28/22 14:40 [facility] [id number]) OT Summary Assessment and Plan Potential Rehabilitation Potential Good Analytic Complexity at Evaluation Low Summary OT Impairments Balance,Functional Cognition, Functional Mobility,Grooming, Dressing,Toileting,Bathing, Toilet Transfers,Shower Transfers,Activity Tolerance Progress Towards Goals Slow Progress due to Medical Issues,Slow Progress due to Activity Tolerance,Slow Progress due to Cognition Assessment Summary Pt low complexity and very groggy, sleepy and having difficulty to stay awake and follow commands. At this time pt needing MAXA x1 to stand to fww and MODA 1-2 for transfer. At this time pt would benefit from skilled rehab. Pending caregiver training and as pt is more alert to possibly go home with 24/7 assist and home health. Goals Self-Feeding Goal Independent Grooming Goal Independent Dressing Goal Independent Toileting Goal Independent Bathing Goal Independent Toilet Transfer Goal Independent Shower Transfer Goal Independent Days to Meet Goals 15 Frequency of Treatment Frequency Of Treatment Once a Day Treatment Plan OT Treatment Plan ADL Training,Functional Cognition Training,Functional Mobility,Patient/Family Education,Discharge Planning Other Treatment Recommendations and Next Caregiver training Treatment Focus Discharge Recommendations OT Discharge Recommendations SNF Rehab,Home vs SNF Other Discharge Recommendations Pt very groogy and pending progress- possibly home with 24/7 assist and Transportation Needs at Discharge Wheelchair/Cabulance
--- NOTE | 2022-07-28 11:21 | OT.IPNOTE ---
Attempted OT eval , pt too sleepy at this time and falling asleep. Able to talk to his significant other regarding prior level and equipment needs. To attempt to see pt in PM.
--- NOTE | 2022-07-28 12:59 | PC.NURSE ---
Rapid Response called on patient as he was unresponsive for a minute or so. He has been sleepy. Patient given 10mg of po oxycodone earlier around 1000. He does have orders for iv dilaudid but this RN has been hesitant to give this as he has been sleepy and his blood pressure runs soft with systolics in the 80s. Ortho PA was notified this morning. Patient is alert and oriented x4. He has a dressing to his mid low back that is cdi, cms wnl. Patient is up in the chair, he has worked with physical therapy and is going to work with O.T. now. His partner is visiting and helpful with care.
--- NOTE | 2022-07-28 13:50 | PT.IPTN ---
Current Diagnoses Other secondary scoliosis, thoracolumbar region (07/27/22) Spinal stenosis, lumbar region with neurogenic claudication (07/27/22) Surgery Performed Operation Date: 07/27/22 08:45 Actual Procedures p L3-4, L4-5 TLIF w. posterior instrumentation-Robot - Caron Adkins MD Physical Therapy Treatment Note M2 PT-IP Current Condition Start: 07/27/22 16:09 Freq: NEEDED Status: Active Protocol: Document 07/28/22 10:10 AB (Rec: 07/28/22 13:29 AB [email or web address]) Physical Therapy Current Condition Current Condition Evaluation Date 07/28/22 Treatment Diagnosis s/p L3-4, L4-5 TLIF; difficulty in walking Onset Date 07/27/22 M3 PT-IP Subjective Start: 07/27/22 16:09 Freq: NEEDED Status: Active Protocol: Document 07/28/22 13:50 AB (Rec: 07/28/22 15:07 AB [email or web address]) Subjective Physical Therapy Visit Type Type Treatment Note Visit Start Time 13:50 Visit Stop Time 14:43 Total Visit Minutes 53 Number of FARM OPERATIONS MANAGER Visits 0 Physical Therapy Visit Comments Patient Comments agreeable to do PT M4 PT-IP Mobility and Gait Start: 07/27/22 16:09 Freq: NEEDED Status: Active Protocol: Document 07/28/22 13:50 AB (Rec: 07/28/22 15:07 AB [email or web address]) PT-Bed Mobility Assessment Rolling Level of Assist Maximal Assistance Supine to Sit Supine to Sit Moderate Assistance,1 Person Assistance,Head of Bed Elevated Sit to Supine Sit to Supine Maximum Assistance,1 Person Assistance PT-Transfer Assessment Sit to and From Stand Sit to and from Stand Moderate Assistance,Maximum Assistance,1 Person Assistance ,2 Person Assistance Equipment Transfer Assistive Device Gait Belt,Front Wheeled Walker Orthotic/Prosthetic Devices or Brace: No Comments Mobility Comments pt in bed and asleep. SO in room and agreed to do PT with pt. Pt woke up and agreed to do PT. reviewed back precautions and recalled 2/3. BP in supine: 117/52. caregiver training initiated. spouse assisted pt with log roll bed mobility max A and cues. needs instructions from PT. pt able to sit on EOB CGA . BP in sittin/55. c/o slight dizziness. sat on EOB for ~ 2-3 minutes and BP checked again: 126/51. educated SO on how to use safety belt and how to assist pt. SO was able to put safety belt on pt. assisted pt with sit to stand mod A and max cues. initially with PT instructed. pt repeated again with SO assisting and providing cues. BP checked: 106/52. pt completed sit to stand again with SO assisting mod A and was able to take side steps towards HOB mod A and max cues for use of FWW and wt shifting to be able to move LE. pt sat on EOB. BP checked: 105/49. pt wanting to stand again. completed sit to stand mod A to max A and max cues and ambulated ~ 10 ft in room using FWW mod A and max cues with PT assisting. BP checked sitting on EOB: 103 /43. assisted pt back in bed. required max A and max cues for log roll sit to supine. positioned pt in bed. call light and table placed within reach. BP checked: 118/54. caregiver training set up again for tomorrow at 930am. SO has concerns about car transfers and stated that they have a high van. discussed requiring car transfer techniques. SO stated that she has a step stool that they can use. Gait Assessment Gait Gait Assistance Required: Moderate Assistance,1 Person Assist Distance (Feet) 10 Able to Maintain Weight Bearing Status Yes During Gait Assistive Devices Assistive Device Gait Belt,Front Wheeled Walker Orthotic/Prosthetic Devices or Brace: No Gait Deviations General Gait Pattern Decreased Stride Length, Decreased Feet Clearance Factors Limiting Gait Function Factors Limiting Gait Function Decreased Activity Tolerance, Limited Range of Motion,Pain, Poor Balance,Poor Safety Awareness M5 PT-IP Objective Assessments Start: 07/27/22 16:09 Freq: NEEDED Status: Active Protocol: Document 07/28/22 10:10 AB (Rec: 07/28/22 13:29 AB [email or web address]) Orientation Orientation/Cognition Level of Alertness Lethargic Orientation Name,Place,Situation Safety Awareness Decreased Safety Awareness Gross Range of Motion Lower Extremity ROM Assessment Within Functional Limits Strength Lower Extremity Strength Assessment Left Impaired Hip 3+/5 Knee 4-/5 Coordination Assessment Gross Coordination Gross Coordination WNL Sensation Assessment Sensation Gross Sensation WNL Muscle Tone Muscle Tone WNL Yes M6 PT-IP Treatment Start: 07/27/22 16:09 Freq: NEEDED Status: Active Protocol: Document 07/28/22 13:50 AB (Rec: 07/28/22 15:07 AB [email or web address]) Physical Therapy Treatment Education Education Provided Precautions,Safety M7 PT-IP Assessment and Plan Start: 07/27/22 16:09 Freq: NEEDED Status: Active Protocol: Document 07/28/22 13:50 AB (Rec: 07/28/22 15:07 AB [email or web address]) PT Summary Assessment and Plan Potential Rehabilitation Potential Fair Summary Impairments Pain,ROM,Strength,Balance, Coordination,Sensation,Tone, Cognition,Bed Mobility, Transfers,Gait,Activity Tolerance Progress Towards Goals Slow Progress due to Medical Issues,Slow Progress due to Activity Tolerance Assessment Summary caregiver training initiated but further training is needed . set up caregiver training for tomorrow at 930 am. pt improving slowly but continues to have low BP affecting activity tolerance and mobility level. will continue to assess progress. Goals Bed Mobility Goal Standby Assistance Transfer Goal Standby Assistance,Front Wheeled Walker Gait Goal Standby Assistance,Front Wheel Walker Gait Distance 150 Days to Meet Goals 5 Frequency of Treatment Frequency Of Treatment Twice a Day Treatment Plan Physical Therapy Treatment Plan Bed Mobility Training,Transfer Training,Gait Training, Therapeutic Exercise,Balance Retraining,Post Op Education, Discharge Planning,Hot or Cold Pack,Neuromuscular Re-ed, Coordination Retraining,Manual Therapy Other Recommendations and Next Treatment Caregiver trainin07/29/22 @ [facility] 930 am Precautions Lumbar Precautions Log Roll,No Twisting,Limit Bending,Lifting Restriction of 10 lbs,Gait Belt above Incisional Area Recommendations To Nursing Amount of Assist Needed 1 Person Assist Discharge Recommendations PT Discharge Recommendations Home with 24/7 Assist Available,Home Health Transportation Needs at Discharge Private Vehicle,Wheelchair/ Cabulance
[2022-07-28] MEDS: ATORVASTATIN 20 MG TABLET 40 MG PO (21:03)
[2022-07-28] MEDS: SENNOSIDES 8.6 MG TABLET 17.2 MG PO (21:04)
[2022-07-29 02:00] VITALS: BP 122/52; PULSE 84; RESP 16; TEMP 36.6; O2SAT 96
[2022-07-29] MEDS: ACETAMINOPHEN 325 MG TABLET 650 MG PO ×3 (02:34→20:48)
[2022-07-29] MEDS: OXYCODONE IR 10 MG TABLET PO ×3 (02:35→15:16)
[2022-07-29 05:27] VITALS: BP 122/52; PULSE 81; RESP 20; TEMP 37.1; O2SAT 96
[2022-07-29] MEDS: LEVOTHYROXINE 88 MCG TABLET PO (06:00)
[2022-07-29 08:36] VITALS: PULSE 80; RESP 18; TEMP 37; O2SAT 96
[2022-07-29] MEDS: hydrOXYzine pamoate 25 MG CAPSULE PO (09:11)
[2022-07-29] MEDS: CARBIDOPA-LEVODOPA 25/100 TABLET 1 EACH PO ×3 (09:11→20:49)
[2022-07-29] MEDS: DOCUSATE 100 MG CAPSULE PO ×2 (09:11→20:49)
[2022-07-29] MEDS: TAMSULOSIN 0.4 MG CAPSULE PO (09:12)
--- NOTE | 2022-07-29 09:32 | PT.IPTN ---
Current Diagnoses Other secondary scoliosis, thoracolumbar region (07/27/22) Spinal stenosis, lumbar region with neurogenic claudication (07/27/22) Surgery Performed Operation Date: 07/27/22 08:45 Actual Procedures p L3-4, L4-5 TLIF w. posterior instrumentation-Robot - Caron Adkins MD Physical Therapy Treatment Note M2 PT-IP Current Condition Start: 07/27/22 16:09 Freq: NEEDED Status: Active Protocol: Document 07/28/22 10:10 AB (Rec: 07/28/22 13:29 AB [email or web address]) Physical Therapy Current Condition Current Condition Evaluation Date 07/28/22 Treatment Diagnosis s/p L3-4, L4-5 TLIF; difficulty in walking Onset Date 07/27/22 M3 PT-IP Subjective Start: 07/27/22 16:09 Freq: NEEDED Status: Active Protocol: Document 07/29/22 10:17 TS (Rec: 07/29/22 10:43 TS [id number]) Subjective Physical Therapy Visit Type Type Treatment Note Visit Start Time 09:32 Visit Stop Time 10:02 Total Visit Minutes 30 Number of BATTERY CONTAINER TESTER Visits 1 Physical Therapy Visit Comments Patient Comments Pt found resting on 1L of o2, 96%, RA after mobility 96%. BP: Supine 113/57, Sitting 112 /42, Standing 78/41. Sitting 93/42, Supine 115/53 Therapy Pain Assessment Pain When Pain Assessed During Mobility Pain Present Pain Present Pain Reported M4 PT-IP Mobility and Gait Start: 07/27/22 16:09 Freq: NEEDED Status: Active Protocol: Document 07/29/22 10:17 TS (Rec: 07/29/22 10:43 TS [id number]) PT-Bed Mobility Assessment Rolling Type of Rolling Log Rolling Level of Assist Minimal Assistance Supine to Sit Supine to Sit Minimal Assistance Sit to Supine Sit to Supine Moderate Assistance Scooting Scooting to Edge of Bed Standby Assistance Scooting Up and Down in Bed Minimal Assistance PT-Transfer Assessment Sit to and From Stand Sit to and from Stand Minimal Assistance,Use of Upper Extremities Equipment Transfer Assistive Device Gait Belt,Front Wheeled Walker Orthotic/Prosthetic Devices or Brace: No Comments Mobility Comments Pt found resting in bed, agreeable to PT. BP taken in supine prior to mobility 113/ 57, SPo2 96% 1L, Spo2 RA 96%. Spouse present for caregiver training. Caregiver and pt instructed in proper logroll technique, pt required Jeanna for roll and caregiver provided cues for sequencing. Supine to sit Jeanna, provided cues for handplacement and educated caregiver on lifting from shoulder. Bp taken in sitting 112/42. Sit to stand x2, Jeanna, provided cues for BUE support pushing from bed, pt slow to stand leans heavily on FWW. In standing pt reported increased dizziness, BP 78/41, pt sat EOB. Sit to supine ModA for LEs into bed, provided cues for logroll technique. Pt was left in bed with call light nearby, pt resting on RA at 96%, RN notified. Gait Assessment Comments Gait Comments Unable at this time. Stair Climbing Assessment Comments Stair Climbing Comments Report no stairs at home. PT-Balance Assessment Sitting Balance and Reactions Static Sitting Balance Ability Good Dynamic Sitting Balance Ability Good Standing Balance and Reactions Static Standing Balance Ability Fair Dynamic Standing Balance Ability Poor Device Used FWW M5 PT-IP Objective Assessments Start: 07/27/22 16:09 Freq: NEEDED Status: Active Protocol: Document 07/28/22 10:10 AB (Rec: 07/28/22 13:29 AB [email or web address]) Orientation Orientation/Cognition Level of Alertness Lethargic Orientation Name,Place,Situation Safety Awareness Decreased Safety Awareness Gross Range of Motion Lower Extremity ROM Assessment Within Functional Limits Strength Lower Extremity Strength Assessment Left Impaired Hip 3+/5 Knee 4-/5 Coordination Assessment Gross Coordination Gross Coordination WNL Sensation Assessment Sensation Gross Sensation WNL Muscle Tone Muscle Tone WNL Yes M6 PT-IP Treatment Start: 07/27/22 16:09 Freq: NEEDED Status: Active Protocol: Document 07/29/22 10:17 TS (Rec: 07/29/22 10:43 [id number]) Physical Therapy Treatment Education Education Provided Precautions,Safety M7 PT-IP Assessment and Plan Start: 07/27/22 16:09 Freq: NEEDED Status: Active Protocol: Document 07/29/22 10:17 TS (Rec: 07/29/22 10:43 TS [id number]) PT Summary Assessment and Plan Potential Rehabilitation Potential Fair Summary Impairments Pain,ROM,Strength,Balance, Coordination,Sensation,Tone, Cognition,Bed Mobility, Transfers,Gait,Activity Tolerance Progress Towards Goals Slow Progress due to Medical Issues,Slow Progress due to Activity Tolerance Assessment Summary Pt continues to make slow progress due to medical issues at this time. Pt recalled 2/3 spinal precations prior to mobility( cold not recall no twsiting).Pt is progressing with his bed mobility and sit to stands with decreased assist but becomes orthstatic in standing and could not progress mobility further. Pt' s spouse is very attentive and is working well with pt providing cues and any assistance he needs. PT is recommending SNF vs home with 24/7 assist and HHPT. If pt's medical issues can resolve therapist believes pt woud be safe to return home with spouse. Goals Bed Mobility Goal Standby Assistance Transfer Goal Standby Assistance,Front Wheeled Walker Gait Goal Standby Assistance,Front Wheel Walker Gait Distance 150 Days to Meet Goals 5 Frequency of Treatment Frequency Of Treatment Twice a Day Treatment Plan Physical Therapy Treatment Plan Bed Mobility Training,Transfer Training,Gait Training, Therapeutic Exercise,Balance Retraining,Post Op Education, Discharge Planning,Hot or Cold Pack,Neuromuscular Re-ed, Coordination Retraining,Manual Therapy Other Recommendations and Next Treatment continue to assess BP due to Focus hypotension, progress transfers and gait if stable. Precautions Lumbar Precautions Log Roll,No Twisting,Limit Bending,Lifting Restriction of 10 lbs,Gait Belt above Incisional Area Recommendations To Nursing Amount of Assist Needed 2 Person Assist Discharge Recommendations PT Discharge Recommendations Home with 24/7 Assist Available,Home Health,Home vs SNF Transportation Needs at Discharge Private Vehicle,Wheelchair/ Cabulance
--- NOTE | 2022-07-29 11:21 | P.DS_ITS ---
History of Present Illness History of Present Illness Date Patient Seen: 07/29/22 Time Patient Seen: 07:20 Chief complaint: INPT Narrative: Patient is resting in bed comfortably in this morning. He states he was up with physical therapy yesterday and sat in his chair. Denies current pain when he is resting on his back. Patient would like to go home today with his spouse if physical therapy goes well. Denies fever, chills, nausea, vomiting. Discharge Providers Provider Date of admission: 07/27/22 07:06 Discharge Date: 07/29/22 Primary care physician: Garland Renee MD Consults: 07/27/22 14:38 Consult to Occupational Therapy Evaluate & Treat Comment: Physician Instructions: Evaluate and treat Consult to Physical Therapy Evaluate & Treat Comment: Physician Instructions: Evaluate and Treat 07/28/22 15:41 Consult to Home Health Routine Comment: Reason For Exam: Home Health P.T, O.T. Discharge provider: Nadine Christian PA-C Summary Hospital Course Discharge Diagnosis: s/p L3-4, L4-5 TLIF Hospital Course: Operative Date/Time/Diagnoses Date of procedure: 07/27/22 Time of procedure: 08:40 Pre-op diagnosis: 1. Lumbar scoliosis 2. Lumbar spinal stenosis with neurogenic claudication Post-op diagnosis: same Procedure & Clinicians Procedure: 1. L3-4, L4-5 Postero-lateral and posterior interbody fusion 2. L3-4, L4-5 interbody cage placement. 3. L3-4, L4-5 decompressive laminectomy with bilateral facetecomies 4. L3-4, L4-5 Posterior segmental instrumentation 5. [place] of bone marrow from iliac crest 6. Utilization of microsurgical technique and operating microscope 7. Utilization of robotic assisted navigation Same procedure as scheduled: Yes Indications: Patient has been having chronic back pain and worsening lumbar radiculopathy and symptoms of neurogenic claudication. Patient failed multiple conservative management with worsening pain weakness and numbness in his lower extremity.? Patient has been having difficulty performing activity of daily living.? After discussing risks benefits of treatment options, patient elected proceed with surgery. Surgeon: Caron Adkins [employer]: uYliet Hurley Click Yes if Unassisted: No Anesthesia Type: General Operative Notes Closure Type: primary Specimen(s): none sent Prosthetic devices, grafts, tissues, transplants, or devices: Globus CREO MIS screws, Rise cages Applied: catheter Estimated Blood Loss (mL): 250 Blood products transfused: none Status at Discharge Cognitive/behavioral status at discharge: oriented Functional status at discharge: uses cane/walker Overall status at discharge: patient is progressing back to baseline Exam Vital Signs (past 8 hours): - 07/29/22 05:27 07/29/22 08:36 07/29/22 10:57 Temperature 98.7 F 98.6 F 98.0 F Pulse Rate 81 80 79 Respiratory Rate 20 18 18 Blood Pressure 122/52 L 109/50 L Pulse Oximetry 96 96 95 Oxygen Flow Rate 1 1 0 Oxygen Delivery Method Nasal Cannula Oxygen Flow Rate 0 Narrative Exam Narrative: Pleasant 68-year-old male. Awake, alert, and oriented. Intraoperative dressing grossly intact with a small amount of serosanguineous discharge. Strength and sensation intact to bilateral lower extremities. Slight decreased sensation on lateral left thigh. Bilateral calves soft, compressible, nontender with no palpable cords or masses. Objective Labs 07/28/22 05:39 [facility] Medical History Acid reflux Afib Ascending aorta dilation Asthma Bradycardia (~2020) CAD (coronary artery disease) Diastolic murmur Easy bruisability HLD (hyperlipidemia) HTN (hypertension) Hypothyroid Lumbar spondylosis Pacemaker (~2017) Parkinson's disease Retinopathy Scoliosis Spinal stenosis, lumbar region with neurogenic claudication SSS (sick sinus syndrome) Tachy-blaine syndrome Surgical History H/O: vasectomy Hx of appendectomy Hx of hemorrhoidectomy Hx of laminectomy (~2002) Hx of tonsillectomy S/P CABG x 4 (~03/2012) Social History household members: significant other Smoking Status: Former smoker alcohol intake: current Discharge Assessment & Plan Assessment and Plan Assessment: Patient is progressing as expected postop day 2 after two-level TLIF. His pain has been well controlled. He has support at home from his spouse. Plan of Treatment: Plan to work with physical therapy today and discharge home when safe and cleared by PT. patient will continue multimodal pain regimen. Follow up with Orthopedics 2 weeks after surgery for removal of jayce. Continue spine precautions: No deep bending, twisting, no lifting over 2 lb. Discharge Plan Discharge Plan Patient Disposition: Home Provider Discharge Comment: Discharge when orthostatically stable Discharge orders & Medications Prescriptions: New acetaminophen 325 mg Tablet 650 mg PO Q6H PRN (Reason: Fever/Mild Pain (1-3)) Qty: 120 0RF hydroxyzine pamoate 25 mg Capsule 25 mg PO Q4HR PRN (Reason: Nausea And Vomiting) Qty: 40 0RF oxycodone 5 mg tablet 5 mg PO Q4H PRN (Reason: pain) Qty: 60 0RF Continued levothyroxine [Synthroid] 88 mcg Tablet 88 mcg PO DAILY Eliquis 5 mg Tablet 5 mg PO BID carbidopa-levodopa 25-100 mg tablet 1 tab PO TID atorvastatin 80 mg tablet 40 mg PO BEDTIME Patient Comments: TAKE 1/2 TABLET BY MOUTH EVERY DAY tamsulosin [Flomax] 0.4 mg capsule 0.4 mg PO DAILY Discontinued tramadol 50 mg Tablet 50 mg PO BID PRN (Reason: Pain) Follow up/Referrals: Garland Renee MD [Primary Care Provider] - Caron Adkins MD [Physician] - As previously scheduled (Follow up with Dr Adkins on 08/11/2022 @ 10:50 am at [facility] in [place].) Diet/Activity/Treatments Diet: Diet as Tolerated Activity: No deep bending or twisting at the waist. No lifting more than 10 pounds. Cold/Heat Therapy: Heating pad to low back as needed for pain. Other treatments: Resume Eliquis tonight. Skin/Wound/Dressing Care Report to your healthcare provider any signs of infection, such as:: chills, fever, night sweats, unusual drainage and unusual redness Dressing: May shower. Keep dressing as dry as possible. If dressing becomes wet or dirty, may replace with clean, dry gauze. No bathing or otherwise soaki ng incisions. Do not apply any creams, lotions, or ointments to incisions. Visit Report/Discharge Packet Instructions: DI for Transforaminal Lumbar Interbody Fusion Stand Alone Forms: Patient Portal/API, Stroke Signs & Symptoms, Surgery Discharge Discharge Data Primary Care Provider: Garland Renee
[2022-07-29] MEDS: LACTATED RINGERS 500 ML 1000 ML IV (11:22)
--- NOTE | 2022-07-29 11:55 | OT.IP.TRT ---
Current Diagnoses Other secondary scoliosis, thoracolumbar region (07/27/22) Spinal stenosis, lumbar region with neurogenic claudication (07/27/22) Surgery Performed Operation Date: 07/27/22 08:45 Actual Procedures p L3-4, L4-5 TLIF w. posterior instrumentation-Robot - Caron Adkins MD Occupational Therapy Treatment Note M2 OT-IP Current Condition Start: 07/28/22 14:25 Freq: Status: Active Protocol: Document 07/28/22 11:15 [facility] (Rec: 07/28/22 14:40 [facility] [id number]) Occupational Therapy Current Condition Current Condition Evaluation Date 07/28/22 Treatment Diagnosis S/p L3-4, L4-5 TLIF Diagnosis Onset Date 07/27/22 Post Operative Precautions Lumbar Precautions Log Roll,No Twisting,Limit Bending,Lifting Restriction of 10 lbs,Gait Belt above Incisional Area M3 OT- IP Subjective and Pain Start: 07/28/22 14:25 Freq: Status: Active Protocol: Document 07/29/22 11:55 [facility] (Rec: 07/29/22 12:00 [facility] [id number]) OT- Subjective Occupational Therapy Visit Type Type Treatment Note Visit Start Time 11:45 Visit Stop Time 11:55 Total Visit Minutes 10 Occupational Therapy Visit Comments Patient Comments Pt still getting a bolus as having low BP earlier. Patient/Caregiver Goals To go home. M4 OT- IP ADL's Start: 07/28/22 14:25 Freq: Status: Active Protocol: Document 07/29/22 11:55 [facility] (Rec: 07/29/22 12:00 [facility] [id number]) OT ADL-Dressing Comments OT Dressing Comments Pt's significant other to assist and emphasized to be sure to communicate well with pt. To assist with his balance or have the pt focus on his balance while she is assisting with clothing needs. M8 OT- IP Objective Assessments Start: 07/28/22 14:25 Freq: Status: Active Protocol: Document 07/28/22 11:15 [facility] (Rec: 07/28/22 14:40 [facility] [id number]) OT-Muscle Tone Assessment Muscle Tone WNL Yes M9 OT- IP Assessment and Plan Start: 07/28/22 14:25 Freq: Status: Active Protocol: Document 07/29/22 11:55 [facility] (Rec: 07/29/22 12:00 [facility] [id number]) OT Summary Assessment and Plan Potential Rehabilitation Potential Good Analytic Complexity at Evaluation Low Summary OT Impairments Balance,Functional Cognition, Functional Mobility,Grooming, Dressing,Toileting,Bathing, Toilet Transfers,Shower Transfers,Activity Tolerance Progress Towards Goals Slow Progress due to Medical Issues Assessment Summary Pt having low BP earlier and able to talk to his SO for OT needs and suggested to be sure to communicate well with pt. Spoke of car transfers and they are looking into borrowing a SUV versus use of their van. To let FURNIT[employer] know that they is a small possibility that they will be using their van which has a step to get into. Pt to go home with 24/7 available assist and home health. Goals Self-Feeding Goal Independent Grooming Goal Independent Dressing Goal Independent Toileting Goal Independent Bathing Goal Independent Toilet Transfer Goal Independent Shower Transfer Goal Independent Days to Meet Goals 14 Frequency of Treatment Frequency Of Treatment Once a Day Treatment Plan OT Treatment Plan ADL Training,Functional Cognition Training,Functional Mobility,Patient/Family Education,Discharge Planning Discharge Recommendations OT Discharge Recommendations Home with 24/7 Assist Available,Home Health Transportation Needs at Discharge Private Vehicle
[2022-07-29 12:00] VITALS: BP 109/50; PULSE 79; RESP 18; TEMP 36.7; O2SAT 95
--- NOTE | 2022-07-29 14:15 | PT.IPTN ---
Current Diagnoses Other secondary scoliosis, thoracolumbar region (07/27/22) Spinal stenosis, lumbar region with neurogenic claudication (07/27/22) Surgery Performed Operation Date: 07/27/22 08:45 Actual Procedures p L3-4, L4-5 TLIF w. posterior instrumentation-Robot - Caron Adkins MD Physical Therapy Treatment Note M2 PT-IP Current Condition Start: 07/27/22 16:09 Freq: NEEDED Status: Active Protocol: Document 07/28/22 10:10 AB (Rec: 07/28/22 13:29 AB [id number]) Physical Therapy Current Condition Current Condition Evaluation Date 07/28/22 Treatment Diagnosis s/p L3-4, L4-5 TLIF; difficulty in walking Onset Date 07/27/22 M3 PT-IP Subjective Start: 07/27/22 16:09 Freq: NEEDED Status: Active Protocol: Document 07/29/22 15:26 TS (Rec: 07/29/22 15:45 TS [id number]) Subjective Physical Therapy Visit Type Type Treatment Note Visit Start Time 14:15 Visit Stop Time 14:40 Total Visit Minutes 25 Notes BP: Sitting 128/56, standing 94/37 Spouse present Number of EQUIPMENT MONITOR PHOTOTYPESETTING Visits 2 Physical Therapy Visit Comments Patient Comments Pt found resting in chair, just got up with nursing to bathroom and reports being exhausted, agreeable to PT. M4 PT-IP Mobility and Gait Start: 07/27/22 16:09 Freq: NEEDED Status: Active Protocol: Document 07/29/22 15:26 TS (Rec: 07/29/22 15:45 TS [id number]) PT-Transfer Assessment Sit to and From Stand Sit to and from Stand Contact Guard Assistance,Use of Upper Extremities Equipment Transfer Assistive Device Gait Belt,Front Wheeled Walker Orthotic/Prosthetic Devices or Brace: No Comments Mobility Comments Spouse present for session. BP taken in sitting 128/56 prior to mobility. Sit to stand from chair with assist from spouse CGA, pt slow to stand, required cues for BUE support pushing from arms of chair. BP taken in standing 94/37, pt reports no dizziness but having some weakness, pt agreed to walk around room. Pt ambulated in room ~60' CGA with FWW, NBOS and slow/ cautious gait, no buckling or LOB, became fatiguedd after ~ 50'. Pt went back to chair, stand to sit CGA, provided cues for reaching back for chair for slow controlled sitting. Pt was left in bedside chair with call light nearby, spouse in room, RN notified. Gait Assessment Gait Gait Assistance Required: Contact Guard Assist,1 Person Assist Distance (Feet) 60 Able to Maintain Weight Bearing Status Yes During Gait Assistive Devices Assistive Device Gait Belt,Front Wheeled Walker Orthotic/Prosthetic Devices or Brace: No Gait Deviations General Gait Pattern Decreased Stride Length, Decreased Feet Clearance, Narrow Based Gait Factors Limiting Gait Function Factors Limiting Gait Function Decreased Activity Tolerance, Limited Range of Motion,Pain, Poor Balance Comments Gait Comments See mobility comments. Stair Climbing Assessment Comments Stair Climbing Comments Report no stairs at home. PT-Balance Assessment Sitting Balance and Reactions Static Sitting Balance Ability Good Dynamic Sitting Balance Ability Good Standing Balance and Reactions Static Standing Balance Ability Fair Dynamic Standing Balance Ability Poor Device Used FWW M5 PT-IP Objective Assessments Start: 07/27/22 16:09 Freq: NEEDED Status: Active Protocol: Document 07/28/22 10:10 AB (Rec: 07/28/22 13:29 AB [id number]) Orientation Orientation/Cognition Level of Alertness Lethargic Orientation Name,Place,Situation Safety Awareness Decreased Safety Awareness Gross Range of Motion Lower Extremity ROM Assessment Within Functional Limits Strength Lower Extremity Strength Assessment Left Impaired Hip 3+/5 Knee 4-/5 Coordination Assessment Gross Coordination Gross Coordination WNL Sensation Assessment Sensation Gross Sensation WNL Muscle Tone Muscle Tone WNL Yes M6 PT-IP Treatment Start: 07/27/22 16:09 Freq: NEEDED Status: Active Protocol: Document 07/29/22 15:26 TS (Rec: 07/29/22 15:45 [id number]) Physical Therapy Treatment Education Education Provided Precautions,Safety M7 PT-IP Assessment and Plan Start: 07/27/22 16:09 Freq: NEEDED Status: Active Protocol: Document 07/29/22 15:26 TS (Rec: 07/29/22 15:45 TS [id number]) PT Summary Assessment and Plan Potential Rehabilitation Potential Fair Summary Impairments Pain,ROM,Strength,Balance, Coordination,Sensation,Tone, Cognition,Bed Mobility, Transfers,Gait,Activity Tolerance Progress Towards Goals Slow Progress due to Pain,Slow Progress due to Medical Issues,Slow Progress due to Activity Tolerance Assessment Summary Pt is making some progress with his mobility but remains limited by pain, weakness and hypotension. Prior to mobility pt's BP was 128/56. He stood with FWW CGA from spouse, BP in standing 94/37, did not c/o dizziness but having some weakness. He progressed his ambualtion to ~60' in room CGA , he became fatigued after ~50 ' and requested back to chair. PT is recommending return home with spouse /7 who continues to do very well in assisting him and HHPT. Goals Bed Mobility Goal Standby Assistance Transfer Goal Standby Assistance,Front Wheeled Walker Gait Goal Standby Assistance,Front Wheel Walker Gait Distance 150 Days to Meet Goals 5 Frequency of Treatment Frequency Of Treatment Twice a Day Treatment Plan Physical Therapy Treatment Plan Bed Mobility Training,Transfer Training,Gait Training, Therapeutic Exercise,Balance Retraining,Post Op Education, Discharge Planning,Hot or Cold Pack,Neuromuscular Re-ed, Coordination Retraining,Manual Therapy Other Recommendations and Next Treatment continue to assess BP due to Focus hypotension, progress transfers and progress gait. Precautions Lumbar Precautions Log Roll,No Twisting,Limit Bending,Lifting Restriction of 10 lbs,Gait Belt above Incisional Area Recommendations To Nursing Amount of Assist Needed 1 Person Assist Discharge Recommendations PT Discharge Recommendations Home with 29/08 Assist Available,Home Health Transportation Needs at Discharge Private Vehicle,Wheelchair/ Cabulance
--- NOTE | 2022-07-29 15:55 | CM.DPC ---
DCP Discharge Home with HH Per Ortho PA, pt tolerated procedure well and likely can d/c home with HH if cleared by PT/OT. Per PT/OT, recommending safe d/c home with sig other assist and HH but pt continues to have orthostatics and bp not yet stable and updated RN. Per RN, will contact Ortho to determine if pt stable for d/c yet today vs tomorrow. Due to pt living on Monday, preference would be to remain tonight until bp stable. TAYA Courtney updated Mario at [facility] on possible d/c today vs tomorrow. [facility] only needs d/c summary faxed at discharge. Plan: SW to follow for possible discharge to home tonight vs tomorrow pending orthostatics and SW to keep [facility] updated on day of discharge. ZAC Michaels
[2022-07-29 16:25] VITALS: BP 123/59; PULSE 77; RESP 17; TEMP 36.3; O2SAT 95
--- NOTE | 2022-07-29 19:39 | PC.NURSE ---
Pt is A&OX4, he is initially orthostatic this a.m. (70's/40's) upon standing with PT and reports dizziness and weakness. Gavi schmid'neel this a.m. Ortho PA notified and he is given 500 cc LR bolus IVF. He has less dramatic BP drop this afternoon and denies dizziness. He is able to ambulate short distance in the room and assisted to BR for large BM and able to void. He reports having a visual hallucination this evening. Spouse and patient feel that although he is improving being that they live in [place] they would feel more secure and safe with discharge waiting through the night to see that ortho static BP improves and patient more clear headed, not hallucinating. 5 mg prn oxycodone given for breakthrough pain but overall pain controlled well with scheduled medication. Patient pain control seem much improved today. PA notified and discharged cancelled until tomorrow. Plan to d/c back to [place] tomorrow.
[2022-07-29 20:15] VITALS: BP 123/62; PULSE 82; RESP 18; TEMP 37; O2SAT 91
[2022-07-29] MEDS: APIXABAN 5 MG TABLET PO (20:48)
[2022-07-29] MEDS: ATORVASTATIN 20 MG TABLET 40 MG PO (20:48)
[2022-07-29] MEDS: SENNOSIDES 8.6 MG TABLET 17.2 MG PO (20:48)
[2022-07-29] MEDS: OXYCODONE IR 10 MG TABLET 5 MG PO (22:44)
[2022-07-29] MEDS: MAGNESIUM HYDROXIDE 30 ML UDC PO (22:53)
[2022-07-30 00:55] VITALS: BP 120/54; PULSE 74; RESP 18; TEMP 37.1; O2SAT 93
[2022-07-30 04:14] VITALS: BP 137/65; PULSE 79; RESP 16; TEMP 37.1; O2SAT 92
--- NOTE | 2022-07-30 05:26 | PC.NURSE ---
Overnight care provided from [id number] Pain management during shift: Tylenol at 10pm, Oxy 5mg at 10:44pm Patient was pleasant throughout shift. Patient was able to rest. Patient did have complaints of constipation. Milk of magnesia provided to attempt relief. Advised of plan in place if it does not help. Care continues
[2022-07-30] MEDS: OXYCODONE IR 10 MG TABLET 5 MG PO (06:22)
[2022-07-30] MEDS: LEVOTHYROXINE 88 MCG TABLET PO (06:22)
--- NOTE | 2022-07-30 08:15 | PT.IPTN ---
Current Diagnoses Other secondary scoliosis, thoracolumbar region (07/27/22) Spinal stenosis, lumbar region with neurogenic claudication (07/27/22) Surgery Performed Operation Date: 07/27/22 08:45 Actual Procedures p L3-4, L4-5 TLIF w. posterior instrumentation-Robot - Caron Adkins MD Physical Therapy Treatment Note M2 PT-IP Current Condition Start: 07/27/22 16:09 Freq: NEEDED Status: Active Protocol: Document 07/28/22 10:10 AB (Rec: 07/28/22 13:29 AB [id number]) Physical Therapy Current Condition Current Condition Evaluation Date 07/28/22 Treatment Diagnosis s/p L3-4, L4-5 TLIF; difficulty in walking Onset Date 07/27/22 M3 PT-IP Subjective Start: 07/27/22 16:09 Freq: NEEDED Status: Active Protocol: Document 07/30/22 08:47 TS (Rec: 07/30/22 09:06 TS [id number]) Subjective Physical Therapy Visit Type Type Treatment Note Visit Start Time 08:15 Visit Stop Time 08:35 Total Visit Minutes 20 Number of DELIVERY AND INSTALLATION SUBCONTRACTOR Visits 3 Physical Therapy Visit Comments Patient Comments Pt found resting in bed, repors getting up with nursing to use toilet this morning, says he feels woozy, agreeable to PT. Therapy Pain Assessment Pain When Pain Assessed During Mobility Pain Present Pain Present Pain Reported M4 PT-IP Mobility and Gait Start: 07/27/22 16:09 Freq: NEEDED Status: Active Protocol: Document 07/30/22 08:47 TS (Rec: 07/30/22 09:06 TS [id number]) PT-Bed Mobility Assessment Rolling Type of Rolling Log Rolling Level of Assist Standby Assistance Supine to Sit Supine to Sit Moderate Assistance Scooting Scooting to Edge of Bed Standby Assistance PT-Transfer Assessment Sit to and From Stand Sit to and from Stand Contact Guard Assistance,Use of Upper Extremities Equipment Transfer Assistive Device Gait Belt,Front Wheeled Walker Orthotic/Prosthetic Devices or Brace: No Comments Mobility Comments Pt found resting in bed, agreeable to PT. BP supine prior to mobility 134/62 supine. Logroll SBA, pt demonstrated good carryover of technique. Supine to sit ModA for uprighting trunk from flat bed, provided cues for handplacement and LEs over EOB . Sitting EOB BP 125/56, denies any dizziness. Sit to stand CGA, slow to stand due to pain. He ambulated to toilet and back to chair CGA ~ 20' with slow step to gait, BP taken in standing 93/46, pt reported some dizziness, sat in chair. Pt was left with call light nearby, spouse in room, RN notified of orthostatics and pt requesting dressing change. Gait Assessment Gait Gait Assistance Required: Contact Guard Assist,1 Person Assist Distance (Feet) 20 Able to Maintain Weight Bearing Status Yes During Gait Assistive Devices Assistive Device Gait Belt,Front Wheeled Walker Orthotic/Prosthetic Devices or Brace: No Gait Deviations General Gait Pattern Decreased Stride Length, Decreased Feet Clearance, Narrow Based Gait Factors Limiting Gait Function Factors Limiting Gait Function Decreased Activity Tolerance, Limited Range of Motion,Pain, Poor Balance Comments Gait Comments See mobility comments. Stair Climbing Assessment Comments Stair Climbing Comments Report no stairs at home. PT-Balance Assessment Sitting Balance and Reactions Static Sitting Balance Ability Good Dynamic Sitting Balance Ability Good Standing Balance and Reactions Static Standing Balance Ability Good Dynamic Standing Balance Ability Fair Device Used FWW M5 PT-IP Objective Assessments Start: 07/27/22 16:09 Freq: NEEDED Status: Active Protocol: Document 07/28/22 10:10 AB (Rec: 07/28/22 13:29 AB [id number]) Orientation Orientation/Cognition Level of Alertness Lethargic Orientation Name,Place,Situation Safety Awareness Decreased Safety Awareness Gross Range of Motion Lower Extremity ROM Assessment Within Functional Limits Strength Lower Extremity Strength Assessment Left Impaired Hip 3+/5 Knee 4-/5 Coordination Assessment Gross Coordination Gross Coordination WNL Sensation Assessment Sensation Gross Sensation WNL Muscle Tone Muscle Tone WNL Yes M6 PT-IP Treatment Start: 07/27/22 16:09 Freq: NEEDED Status: Active Protocol: Document 07/30/22 08:47 TS (Rec: 07/30/22 09:06 TS [id number]) Physical Therapy Treatment Education Education Provided Precautions,Safety M7 PT-IP Assessment and Plan Start: 07/27/22 16:09 Freq: NEEDED Status: Active Protocol: Document 07/30/22 08:47 TS (Rec: 07/30/22 09:06 TS [id number]) PT Summary Assessment and Plan Potential Rehabilitation Potential Fair Summary Impairments Pain,ROM,Strength,Balance, Coordination,Sensation,Tone, Cognition,Bed Mobility, Transfers,Gait,Activity Tolerance Progress Towards Goals Slow Progress due to Medical Issues Assessment Summary Pt is doing well with his mobility but his hypotension remains a barrier to him progressing his gait. He tolerates being on his feet ~ 5mins before reporting some dizziness and requires a rest break. He continues to be CGA for gait and sit to stands. He required ModA from flat bed to upright trunk for supine to sit. His mobility is slow/ cautious and requires extra time to complete but he is very safe. Spouse continues to work well with pt and provides good cues throught session. PT is recommending return home with spouse for 24 /7 assist. At home pt has 10 ft to get from car to door and they have chairs they can place every few feet just in case he gets dizzy and requires to sit. Goals Bed Mobility Goal Standby Assistance Transfer Goal Standby Assistance,Front Wheeled Walker Gait Goal Standby Assistance,Front Wheel Walker Gait Distance 150 Days to Meet Goals 5 Frequency of Treatment Frequency Of Treatment Twice a Day Treatment Plan Physical Therapy Treatment Plan Bed Mobility Training,Transfer Training,Gait Training, Therapeutic Exercise,Balance Retraining,Post Op Education, Discharge Planning,Hot or Cold Pack,Neuromuscular Re-ed, Coordination Retraining,Manual Therapy Other Recommendations and Next Treatment continue to assess BP due to Focus hypotension, progress transfers and progress gait. Precautions Lumbar Precautions Log Roll,No Twisting,Limit Bending,Lifting Restriction of 10 lbs,Gait Belt above Incisional Area Recommendations To Nursing Amount of Assist Needed 1 Person Assist Discharge Recommendations PT Discharge Recommendations Home with 24/7 Assist Available,Home Health Transportation Needs at Discharge Private Vehicle,Wheelchair/ Cabulance
[2022-07-30 09:11] VITALS: BP 93/46
[2022-07-30 09:20] VITALS: BP 119/55; PULSE 72; RESP 16; TEMP 36.3; O2SAT 93
[2022-07-30] MEDS: DOCUSATE 100 MG CAPSULE PO (09:32)
[2022-07-30] MEDS: TAMSULOSIN 0.4 MG CAPSULE PO (09:32)
[2022-07-30] MEDS: APIXABAN 5 MG TABLET PO (09:32)
[2022-07-30] MEDS: CARBIDOPA-LEVODOPA 25/100 TABLET 1 EACH PO (09:32)
[2022-07-30] MEDS: ACETAMINOPHEN 325 MG TABLET 650 MG PO (09:33)
--- NOTE | 2022-07-30 11:04 | PM.DS.1 ---
History of Present Illness History of Present Illness Chief complaint: INPT Narrative: Patient is sitting at the edge of bed with walker in front of him and spouse at bedside. Patient states he is feeling better today than yesterday. He denies current dizziness, though he notes he gets a little bit lightheaded while standing up sometimes. Plan has been made for spouse to assist patient with ambulation which she is comfortable with. Denies fever, chills, nausea, vomiting. Discharge Providers Provider Date of admission: 07/27/22 07:06 Discharge Date: 07/30/22 Primary care physician: Garland Renee MD Consults: 07/27/22 14:38 Consult to Occupational Therapy Evaluate & Treat Comment: Physician Instructions: Evaluate and treat Consult to Physical Therapy Evaluate & Treat Comment: Physician Instructions: Evaluate and Treat 07/28/22 15:41 Consult to Home Health Routine Comment: Reason For Exam: Home Health P.T, O.T. Discharge provider: Nadine Christian PA-C Summary Hospital Course Discharge Diagnosis: Status post TLIF Hospital Course: Operative Date/Time/Diagnoses Date of procedure: 07/27/22 Time of procedure: 08:40 Pre-op diagnosis: 1. Lumbar scoliosis 2. Lumbar spinal stenosis with neurogenic claudication Post-op diagnosis: same Procedure & Clinicians Procedure: 1. L3-4, L4-5 Postero-lateral and posterior interbody fusion 2. L3-4, L4-5 interbody cage placement. 3. L3-4, L4-5 decompressive laminectomy with bilateral facetecomies 4. L3-4, L4-5 Posterior segmental instrumentation 5. [place] of bone marrow from iliac crest 6. Utilization of microsurgical technique and operating microscope 7. Utilization of robotic assisted navigation Same procedure as scheduled: Yes Indications: Patient has been having chronic back pain and worsening lumbar radiculopathy and symptoms of neurogenic claudication. Patient failed multiple conservative management with worsening pain weakness and numbness in his lower extremity.? Patient has been having difficulty performing activity of daily living.? After discussing risks benefits of treatment options, patient elected proceed with surgery. Surgeon: Caron Adkins Healthcare Advisory Services Manager: Yuliet Hurley Click Yes if Unassisted: No Anesthesia Type: General Operative Notes Closure Type: primary Specimen(s): none sent Prosthetic devices, grafts, tissues, transplants, or devices: Globus CREO MIS screws, Rise cages Applied: catheter Estimated Blood Loss (mL): 250 Blood products transfused: none Exam Vital Signs (past 8 hours): - 07/30/22 04:14 07/30/22 09:11 07/30/22 09:20 Temperature 98.7 F 97.3 F L Pulse Rate 79 72 Respiratory Rate 16 16 Blood Pressure 137/65 93/46 L 119/55 L Pulse Oximetry 92 93 Oxygen Delivery Method Oxygen Flow Rate 0 0 07/30/22 10:18 Temperature Pulse Rate Respiratory Rate Blood Pressure Pulse Oximetry Oxygen Delivery Method Room Air Oxygen Flow Rate Oxygen Delivery Method Room Air Oxygen Flow Rate 0 Narrative Exam Narrative: Pleasant 68-year-old male. Awake, alert, and oriented. Sitting up at edge of bed. Ambulating with walker. Dressing clean, dry, and intact. Strength and sensation intact to bilateral lower extremities. Bilateral calves soft, compressible, nontender with no palpable cords or masses. Objective Labs 07/28/22 05:39 [facility] Medical History Acid reflux Afib Ascending aorta dilation Asthma Bradycardia (~2020) CAD (coronary artery disease) Diastolic murmur Easy bruisability HLD (hyperlipidemia) HTN (hypertension) Hypothyroid Lumbar spondylosis Pacemaker (~2017) Parkinson's disease Retinopathy Scoliosis Spinal stenosis, lumbar region with neurogenic claudication SSS (sick sinus syndrome) Tachy-blaine syndrome Surgical History H/O: vasectomy Hx of appendectomy Hx of hemorrhoidectomy Hx of laminectomy (~2002) Hx of tonsillectomy S/P CABG x 4 (~03/2012) Social History household members: significant other Smoking Status: Former smoker alcohol intake: current Discharge Assessment & Plan Assessment and Plan Assessment: Patient is progressing as expected after TLIF 3 days ago, though postoperative course has been mildly complicated by orthostatic hypotension. He has been improving with physical therapy. Pain well managed with medication. Plan of Treatment: Plan to discharge to home today with spouse available for assistance. He has been cleared by Physical therapy. Continue multimodal pain regimen as needed. Continue spine precautions. Follow up with Orthopedics 2 weeks after surgery for staple removal. Discharge Plan Discharge Plan Patient Disposition: Home Discharge orders & Medications Prescriptions: New acetaminophen 325 mg Tablet 650 mg PO Q6H PRN (Reason: Fever/Mild Pain (1-3)) Qty: 120 0RF hydroxyzine pamoate 25 mg Capsule 25 mg PO Q4HR PRN (Reason: Nausea And Vomiting) Qty: 40 0RF oxycodone 5 mg tablet 5 mg PO Q4H PRN (Reason: pain) Qty: 60 0RF Continued levothyroxine [Synthroid] 88 mcg Tablet 88 mcg PO DAILY Eliquis 5 mg Tablet 5 mg PO BID carbidopa-levodopa 25-100 mg tablet 1 tab PO TID atorvastatin 80 mg tablet 40 mg PO BEDTIME Patient Comments: TAKE 1/2 TABLET BY MOUTH EVERY DAY tamsulosin [Flomax] 0.4 mg capsule 0.4 mg PO DAILY Discontinued tramadol 50 mg Tablet 50 mg PO BID PRN (Reason: Pain) Follow up/Referrals: Garland Renee MD [Primary Care Provider] - Caron Adkins MD [Physician] - As previously scheduled (Follow up with Dr Adkins on 08/11/2022 @ 10:50 am at [facility].) Diet/Activity/Treatments Diet: Diet as Tolerated Activity: No deep bending or twisting at the waist. No lifting more than 10 pounds. Cold/Heat Therapy: Heating pad to low back as needed for pain. Other treatments: Continue Eliquis for DVT prophylaxis. Skin/Wound/Dressing Care Report to your healthcare provider any signs of infection, such as:: chills, fever, night sweats, unusual drainage and unusual redness Dressing: May shower. Keep dressing as dry as possible. If dressing becomes wet or dirty, may replace with clean, dry gauze. No bathing or otherwise soaking incisions. Do not apply any creams, lotions, or ointments to incisions. Visit Report/Discharge Packet Instructions: DI for Prescription Opioid Use, DI for Posterior Lumbar Interbody Fusion, DI for Transforaminal Lumbar Interbody Fusion Stand Alone Forms: Patient Portal/API, Stroke Signs & Symptoms, Surgery Discharge Discharge Data Primary Care Provider: Garland Renee
--- NOTE | 2022-07-30 12:34 | CM.DPNOTE ---
Discharge Planning Note: Patient cleared for discharge and will discharge home with his . [place] afternoon ferry. Faxed the Discharge Summary to [facility]. Plan: DC home to care of . HH to start next week. Carmen Serrano RN/DCP
--- NOTE | 2022-07-30 12:43 | PC.NURSE ---
Patient teaching for d/c done at bedside with spouse. Patient and state understanding of post op precautions. Medications sent to [facility] is aware. F/u appt with surgery sched. prior to surgery, pt aware. Dressing changed, patient vivian. well.
== END 2022-07-30 12:35 | disposition home or self-care (01) | DRG 455 ==
PROVIDERS: Admitting Provider Orthopaedic Surgery Orthopaedic Surgery of the Spine; PCP Family Medicine; Referring Provider Orthopaedic Surgery Orthopaedic Surgery of the Spine; Visit Provider Orthopaedic Surgery Orthopaedic Surgery of the Spine
PROC: 0SG10AJ Fusion of 2 or more Lumbar Vertebral Joints with Interbody Fusion Device, Posterior Approach, Anterior Column, Open Approach (ICD-10-PCS; principal; 2022-07-27 08:45)
DX: M48.062 Spinal stenosis, lumbar region with neurogenic claudication (principal); M41.25 Other idiopathic scoliosis, thoracolumbar region; M41.86 Other forms of scoliosis, lumbar region; E03.9 Hypothyroidism, unspecified; I95.1 Orthostatic hypotension; G20 Parkinson's disease; E78.5 Hyperlipidemia, unspecified; Z87.891 Personal history of nicotine dependence; Z20.822 Contact with and (suspected) exposure to COVID-19
CPT/HCPCS: 36415; 72100; 76000; 85014; 85018; 97116; 97162; 97165; 97530; C1713; C9290; J0171; J0690; J1100; J1170; J2250; J2405; J2704; J3010